=== PATIENT | female | born 1960 | race African-American/Black ===

== ENCOUNTER → 2016-02-19 | Outpatient (CLI) | payer MEDICARE, MEDICAID ==
[2016-02-19 09:36] LABS: CHOLESTEROL 192.79 mg/dL (0-200); Direct HDL 61 mg/dL (>40); TRIGLYCERIDES 157 mg/dL (<150)
[2016-02-19 09:47] LABS: DIRECT LDL 89 mg/dL (<100)
[2016-02-19 09:52] LABS: VLDL CHOLESTEROL 31.4 mg/dL (10-31)
== END ==
LOC: OD 07:57
PROVIDERS: ATTEND Internal Medicine
DX: E11.9 Type 2 diabetes mellitus without complications (principal); E78.5 Hyperlipidemia, unspecified
CPT/HCPCS: 36415; 80061; 83036

== ENCOUNTER → 2016-04-09 | Outpatient (CLI) | payer MEDICARE, MEDICAID | LOC: RAD 10:02 | PROVIDERS: ATTEND Specialist | DX: C56.1 Malignant neoplasm of right ovary (principal) | CPT/HCPCS: 74177 ==

== ENCOUNTER → 2016-05-17 | Outpatient (CLI) | payer MEDICARE, MEDICAID ==
[2016-05-17 09:33] LABS: URIC ACID 4.7 mg/dL (2.5-7.5)
[2016-05-18 13:38] LABS: CREATININE URINE 76.5 mg/dL (Not Estab.)
== END ==
LOC: OD 08:03
PROVIDERS: ATTEND Family Medicine Geriatric Medicine
DX: M25.561 Pain in right knee (principal); E11.9 Type 2 diabetes mellitus without complications; M06.9 Rheumatoid arthritis, unspecified; Z79.899 Other long term (current) drug therapy
CPT/HCPCS: 36415; 82043; 82570; 84443; 84450; 84460; 84550

== ENCOUNTER → 2016-07-01 | Outpatient (CLI) | payer MEDICARE, MEDICAID | LOC: RAD 10:12 | PROVIDERS: ATTEND Specialist | DX: C56.1 Malignant neoplasm of right ovary (principal) | CPT/HCPCS: 74177; 82565 ==

== ENCOUNTER → 2016-09-13 | Outpatient (CLI) | payer MEDICARE, MEDICAID ==
--- NOTE | 2016-09-13 10:08 | RADIOLOGY REPORT (SQ) ---
EXAM DESCRIPTION: CT ABD/PELVIS WITH IV ORAL COMPLETED DATE/TIME: 09/13/2016 8:30 am REASON FOR STUDY: OVARIAN CA (C56.1) C56.1 MALIGNANT NEOPLASM OF RIGHT OVARY COMPARISON: 07/01/2016. 04/09/2016. TECHNIQUE: CT scan of the abdomen and pelvis performed with intravenous and oral contrast using silva juan pablo scanning technique with dynamic intravenous contrast injection. Images reviewed with lung, soft t issue, and bone windows. Reconstructed coronal and sagittal MPR images reviewed. Delayed images for e valuation of the urinary system also acquired. All images stored on PACS. All CT scanners at this facility use dose modulation, iterative reconstruction, and/or weight based d osing when appropriate to reduce radiation dose to as low as reasonably achievable (ALARA). [facility]: Dose Right [facility]: CareDose [facility]: Dose Right [facility]: Teradose 4D [facility]: [employer] CONTRAST TYPE AND DOSE: contrast/concentration: Isovue mg/ml; Total Contrast Delivered: 84.0 ml; To mario alberto Saline Delivered: 34.3 ml RENAL FUNCTION: Creatinine 1.1 RADIATION DOSE: Up-to-date CT equipment and radiation dose reduction techniques were employed. CTDIv ol: 7.3 - 8.7 mGy. DLP: 838 mGy-cm.. LIMITATIONS: None. FINDINGS: LOWER CHEST: Slightly nodular appearing scar in the posterior left costophrenic angle. Th is is nonprogressive over time, measuring up to 1.8 cm transverse dimension. Otherwise, motion artif act. LIVER: Normal size. No masses. No dilated ducts. SPLEEN: Normal size. No focal lesions. PANCREAS: No masses. No significant calcifications. No adjacent inflammation or peripancreatic fluid collections. Pancreatic duct not dilated. GALLBLADDER: Large calcified gallstone. No wall thickening surrounding fluid or duct dilatation. ADRENAL GLANDS: No significant masses or asymmetry. RIGHT KIDNEY AND URETER: Nonobstructive calcifications may be vascular. No obstructive changes or ma ss. LEFT KIDNEY AND URETER: Left ureteral stent in place. No obstructive changes or developing mass. AORTA AND VESSELS: No aneurysm. No dissection. Renal arteries, SMA, celiac without stenosis. RETROPERITONEUM: No retroperitoneal adenopathy, hemorrhage or masses. BOWEL AND PERITONEAL CAVITY: No obstruction. No visualized masses. No free fluid. No inflammatory ch anges or thickening of bowel wall. APPENDIX: Normal. PELVIS: Surgical clips and calcifications. Bladder unremarkable. Small subcentimeter pelvic sidewal l lymph nodes are nonprogressive. Tissue along the left pelvic sidewall surrounding the stent is non progressive, measuring up to just over 1 cm transverse dimension. ABDOMINAL WALL: No masses. No hernias. BONES: No significant or acute findings. OTHER: No other significant finding. IMPRESSION: 1. Fairly stable examination. Left ureteral stent remains in place with no evidence of obstruction on today's study. Other unchanged findings include nodular appearing scar in the left l rafat base, cholelithiasis, small persistent pelvic lymph nodes which are not grossly progressive. TECHNICAL DOCUMENTATION: JOB ID: [id number] Quality ID # 436: Final reports with documentation of one or more dose reduction techniques (e.g., Au tomated exposure control, adjustment of the mA and/or kV according to patient size, use of iterative reconstruction technique) 2010 [employer]- All Rights Reserved
== END ==
LOC: RAD 07:35
PROVIDERS: ATTEND Internal Medicine
DX: C56.1 Malignant neoplasm of right ovary (principal)
CPT/HCPCS: 74177

== ENCOUNTER → 2016-09-14 | Outpatient (CLI) | payer MEDICARE, MEDICAID ==
[2016-09-14 11:35] LABS: ALANINE AMINOTRANSFERASE 26 U/L (9-52); ASPARTATE AMINO TRANSFERASE 21 U/L (14-36); CHOLESTEROL 273.38 mg/dL (0-200); Direct HDL 98 mg/dL (>40); TRIGLYCERIDES 93 mg/dL (<150)
[2016-09-14 11:47] LABS: DIRECT LDL 134 mg/dL (<100)
[2016-09-15 11:40] LABS: CREATININE URINE 126.6 mg/dL (Not Estab.); MICROALBUMIN URINE 115.3 ug/mL (Not Estab.)
== END ==
LOC: OD 07:20
PROVIDERS: ATTEND Family Medicine Geriatric Medicine
DX: E11.9 Type 2 diabetes mellitus without complications (principal); I10 Essential (primary) hypertension; E78.5 Hyperlipidemia, unspecified; Z79.899 Other long term (current) drug therapy
CPT/HCPCS: 36415; 80061; 82043; 82570; 83036; 84450; 84460

== ENCOUNTER → 2016-09-22 | Outpatient (CLI) | payer MEDICARE, MEDICAID ==
--- NOTE | 2016-09-22 11:50 | RADIOLOGY REPORT (SQ) ---
EXAM DESCRIPTION: CT HEAD WITHOUT COMPLETED DATE/TIME: 09/22/2016 11:40 am REASON FOR STUDY: SYNCOPE AND COLLAPSE, OVARIAN CA R55 SYNCOPE AND COLLAPSE C56.9 MALIGNANT NEOPLA SM OF UNSPECIFIED OVARY COMPARISON: CT brain 08/18/2015, 01/29/2014 TECHNIQUE: Axial images acquired through the brain without intravenous contrast. Images reviewed wi th bone, brain and subdural windows. Images stored on PACS. All CT scanners at this facility use dose modulation, iterative reconstruction, and/or weight based d osing when appropriate to reduce radiation dose to as low as reasonably achievable (ALARA). [facility]: Dose Right [facility]: CareDose [facility]: Dose Right [facility]: Teradose 4D [facility]: [employer] RADIATION DOSE: Up-to-date CT equipment and radiation dose reduction techniques were employed. CTDIv ol: 64.6 mGy. DLP: 1034 mGy-cm. mGy. LIMITATIONS: None. FINDINGS: VENTRICLES: Normal size and contour. CEREBRUM: Minimal spotty chronic bifrontal and biparietal small vessel ischemic change, stable. Old lacunar infarct left caudate and left posterior limb internal capsule. Benign bilateral basal gangli a calcifications. No CT evidence of acute ischemic change, acute intracranial hemorrhage, mass effect, or midline shift . CEREBELLUM: No masses. No hemorrhage. No alteration of density. No evidence for acute infarction. EXTRAAXIAL SPACES: No fluid collections. No masses. ORBITS AND GLOBE: No intra- or extraconal masses. Normal contour of globe without masses. CALVARIUM: No fracture. PARANASAL SINUSES: No fluid or mucosal thickening. SOFT TISSUES: No mass or hematoma. OTHER: No other significant finding. IMPRESSION: White matter disease, old lacunar infarcts. No acute findings. TECHNICAL DOCUMENTATION: JOB ID: [id number] Quality ID # 436: Final reports with documentation of one or more dose reduction techniques (e.g., Au tomated exposure control, adjustment of the mA and/or kV according to patient size, use of iterative reconstruction technique) 2010 [employer]- All Rights Reserved
== END ==
LOC: RAD 11:26
PROVIDERS: ATTEND Family Medicine Geriatric Medicine
DX: R55 Syncope and collapse (principal); C56.9 Malignant neoplasm of unspecified ovary
CPT/HCPCS: 70450

== ENCOUNTER → 2016-10-04 | Outpatient (CLI) | payer MEDICARE, MEDICAID ==
[2016-10-04 08:34] LABS: CHOLESTEROL 255.15 mg/dL (0-200); Direct HDL 109 mg/dL (>40); TRIGLYCERIDES 104 mg/dL (<150)
[2016-10-04 08:44] LABS: DIRECT LDL 103 mg/dL (<100)
== END ==
LOC: OD 07:12
PROVIDERS: ATTEND Family Medicine Geriatric Medicine
DX: E78.5 Hyperlipidemia, unspecified (principal); Z79.899 Other long term (current) drug therapy
CPT/HCPCS: 36415; 80061

== ENCOUNTER 2016-11-16 14:03 | Day surgery (SDC) | payer MEDICARE, MEDICAID ==
[2016-11-11 09:59] LABS: HEMATOCRIT 39.1 % (36.0-47.0); HEMOGLOBIN 12.8 g/dL (12.0-15.5); HGB HCT DIFFERENCE -0.7; MEAN CORPUSCULAR HEMOGLOBIN 29.5 pg (27.0-33.4); MEAN CORPUSCULAR HGB CONC 32.8 g/dL (32.0-36.0); MEAN CORPUSCULAR VOLUME 90 fl (80-97); RED BLOOD COUNT 4.35 10^6/uL (3.72-5.28); RED CELL DISTRIBUTION WIDTH 16.8 % (11.5-14.0); WHITE BLOOD COUNT 5.7 10^3/uL (4.0-10.5)
--- NOTE | 2016-11-11 12:08 | RADIOLOGY REPORT (SQ) ---
EXAM DESCRIPTION: CHEST PA/LATERAL COMPLETED DATE/TIME: 11/11/2016 11:59 am REASON FOR STUDY: PRE OP COMPARISON: None. EXAM PARAMETERS: NUMBER OF VIEWS: two views TECHNIQUE: Digital Frontal and Lateral radiographic views of the chest acquired. RADIATION DOSE: NA LIMITATIONS: none FINDINGS: LUNGS AND PLEURA: No opacities, masses or pneumothorax. No pleural effusion. MEDIASTINUM AND HILAR STRUCTURES: No masses or contour abnormalities. HEART AND VASCULAR STRUCTURES: Heart normal size. No evidence for failure. BONES: No acute findings. Thoracic scoliosis. HARDWARE: None in the chest. OTHER: No other significant finding. IMPRESSION: NO SIGNIFICANT RADIOGRAPHIC FINDING IN THE CHEST. TECHNICAL DOCUMENTATION: JOB ID: [id number] [employer]- All Rights Reserved
[2016-11-11 12:51] LABS: ANION GAP 10 (5-19); BLOOD UREA NITROGEN 26 mg/dL (7-20); CALCIUM 10.5 mg/dL (8.4-10.2); CARBON DIOXIDE 27 mmol/L (22-30); CHLORIDE 106 mmol/L (98-107); CREATININE RESULT 0.98 mg/dL (0.52-1.25); GLUCOSE 105 mg/dL (75-110); POTASSIUM 4.6 mmol/L (3.6-5.0); SODIUM 142.7 mmol/L (137-145)
[~2016-11-16 14:03] MED LIST: ACETAMINOPHEN 325 MG TABLET PO PRN; BUPIVACAINE HCL 0.25 % INJ/PF (2.5 MG/1 ML) 30 ML VIAL ONE; CEFAZOLIN 1 GM/D5W RTU 1 GM/50 ML RTUPB IV PRN; FENTANYL CITRATE INJ/PF 100 MCG/2 ML AMPUL ONE; LACTATED RINGERS 1000 ML IV PRN; LIDOCAINE 0.5% INJ-PF (5 MG/ML) 50 ML SDV SUBCUT PRN; MIDAZOLAM 2 MG/2 ML INJ ONE; PROPOFOL INJ 200 MG/20 ML VIAL IV ONE
[2016-11-16] MEDS ORDERED: FENTANYL CITRATE INJ/PF 100 MCG/2 ML AMPUL IV PRN ×3 (14:49)
[2016-11-16] MEDS ORDERED: OXYCODONE-ACETAMINOPHEN 5-325 MG TABLET PO PRN ×2 (14:49)
[2016-11-16] MEDS ORDERED: PROMETHAZINE HCL INJ 25 MG/1 ML VIAL IV PRN ×2 (14:49)
[2016-11-16] MEDS ORDERED: DIPHENHYDRAMINE HCL 50 MG/ML VIAL IV PRN (14:49)
[2016-11-16] MEDS ORDERED: MEPERIDINE HCL/PF INJ 25 MG/1 ML DISP.SYRIN IV PRN (14:49)
[2016-11-16] MEDS ORDERED: MORPHINE SULFATE 10 MG/ML INJ IV PRN (14:49)
--- NOTE | 2016-11-16 15:24 | Operative Report ---
Operative Report DATE OF SURGERY: 11/16/16 PREOPERATIVE DIAGNOSIS: Ovarian cancer POSTOPERATIVE DIAGNOSIS: Ovarian cancer OPERATION: Left subclavian single-lumen PowerPort placement (permanent implanted central venous access placed via fluoroscopic guidance) SURGEON: MAGGIE ANDRES ANESTHESIA: LMAC TISSUE REMOVED OR ALTERED: None COMPLICATIONS: None ESTIMATED BLOOD LOSS: Minimal INTRAOPERATIVE FINDINGS: None PROCEDURE: Patient was brought to the operating room placed operating table in the supine position. The procedure was done under LMAC. Patient's left neck and chest were prepped and draped in usual sterile fashion. Local anesthetic was injected. The left subclavian vein was cannulated without difficulty guidewire was placed into the central circulation under fluoroscopic guidance. A subcutaneous pocket was created in the patient's left anterior upper chest. Single-lumen catheter was then tunneled between the 2 incisions. The catheter was placed into the central circulation using the introducer device. Catheter was then attached to the power port which was then implanted into the subcutaneous pocket. The tip of the catheter was verified at the right atrial superior vena cava junction by fluoroscopy. The port withdrew blood and flushed easily. It was flushed with heparin solution. All wounds were closed with a deep dermal interrupted Vicryl sutures followed by subcuticular running Monocryl suture. Patient tolerated procedure well with no apparent complications and was taken to the recovery area in stable condition. Stat portable chest x-ray was ordered in the recovery room
--- NOTE | 2016-11-16 15:27 | PDOC DISCHARGE SUMMARY ---
Discharge Summary (SDC) - Discharge Final Diagnosis: Ovarian cancer Date of Surgery: 11/16/16 Discharge Date: 11/16/16 Condition: Good Treatment or Instructions: Left subclavian single-lumen PowerPort placement. Stat portable chest x-ray in the recovery room. May discharge patient home when met discharge criteria. Follow-up with me as needed. May shower in 2 days. Keep Steri-Strips on. May use PowerPort. May resume Plavix in 5 days if no swelling and no bleeding. Prescriptions: Oxycodone HCl/Acetaminophen [Percocet 5-325 mg Tablet] 1 tab PO ASDIR PRN #10 tablet PRN Reason: Referrals: MATTHEW MARION MD [Primary Care Provider] - Discharge Diet: As Tolerated Discharge Activity: Activity As Tolerated - Stay active but avoid strenuous activity. Report the Following to Your Physician Immediately: Shortness of Breath, Fever over 101 Degrees, Unusual Bleeding, Redness, Drainage-Foul Smelling
--- NOTE | 2016-11-16 16:13 | RADIOLOGY REPORT (SQ) ---
EXAM DESCRIPTION: CHEST SINGLE VIEW COMPLETED DATE/TIME: 11/16/2016 3:44 pm REASON FOR STUDY: Status post Port-A-Cath placement COMPARISON: AP chest 11/11/2016 EXAM PARAMETERS: NUMBER OF VIEWS: One view. TECHNIQUE: Single frontal radiographic view of the chest acquired. RADIATION DOSE: NA LIMITATIONS: None. FINDINGS: Interval placement of a left-sided permanent central line with the tip in the superior krissy a cava. No left pneumothorax. LUNGS AND PLEURA: No opacities, masses or pneumothorax. No pleural effusion. MEDIASTINUM AND HILAR STRUCTURES: No masses. Contour normal. HEART AND VASCULAR STRUCTURES: Heart normal in size. Normal vasculature. BONES: No acute findings. HARDWARE: As above OTHER: No other significant finding. IMPRESSION: Left-sided permanent central line tip superior vena cava. No pneumothorax. TECHNICAL DOCUMENTATION: JOB ID: [id number]
--- NOTE | 2016-11-16 17:00 | RADIOLOGY REPORT (SQ) ---
EXAM DESCRIPTION: FLUORO/CV PLACEMENT COMPLETED DATE/TIME: 11/16/2016 3:38 pm REASON FOR STUDY: PORTACATH PLACEMENT C56.1 MALIGNANT NEOPLASM OF RIGHT OVARY COMPARISON: Two-view chest 11/11/2016 FLUOROSCOPY TIME: 0.2 minutes 4 digital radiographic images saved to PACS. TECHNIQUE: Intra-operative images acquired during surgical procedure to evaluate progress. NUMBER OF IMAGES: Cine fluoroscopic images. LIMITATIONS: None. FINDINGS: Intra procedural imaging and fluoro during permanent central line placement in the OR. Pl ease see the operative report for further details IMPRESSION: Intra procedural imaging and fluoro COMMENT: Quality ID 145: Final reports for procedures using fluoroscopy that document radiation exp osure indices, or exposure time and number of fluorographic images (if radiation exposure indices are not available) Please consult full operative report of the attending physician for description of the procedure. TECHNICAL DOCUMENTATION: JOB ID: [id number] [employer]- All Rights Reserved
[2016-11-16 17:45] VITALS: BP 145/99
== END 2016-11-16 17:45 | disposition home or self-care (01) ==
LOC: OROUT 14:03
PROVIDERS: ATTEND Surgery
PROC: 05H633Z Insertion of Infusion Device into Left Subclavian Vein, Percutaneous Approach (ICD-10-PCS; principal; 2016-11-16 15:30)
DX: C56.1 Malignant neoplasm of right ovary (principal); Z86.73 Personal history of transient ischemic attack (TIA), and cerebral infarction without residual deficits; Z79.899 Other long term (current) drug therapy; E11.9 Type 2 diabetes mellitus without complications; Z79.84 Long term (current) use of oral hypoglycemic drugs; Z79.82 Long term (current) use of aspirin; Z79.02 Long term (current) use of antithrombotics/antiplatelets
CPT/HCPCS: 36415; 71010; 71020; 77001; 80048; 82962; 85027; C1788; J0690; J1642; J2250; J2704; J3010

== ENCOUNTER → 2017-02-28 | Outpatient (CLI) | payer MEDICARE, MEDICAID ==
--- NOTE | 2017-02-28 11:52 | RADIOLOGY REPORT (SQ) ---
EXAM DESCRIPTION: CT ABD/PELVIS WITH IV ORAL COMPLETED DATE/TIME: 02/28/2017 10:10 am REASON FOR STUDY: OVARIAN CA (C56.1) C56.1 MALIGNANT NEOPLASM OF RIGHT OVARY COMPARISON: 09/13/2016 TECHNIQUE: CT scan of the abdomen and pelvis performed with intravenous and oral contrast using silva juan pablo scanning technique with dynamic intravenous contrast injection. Images reviewed with lung, soft t issue, and bone windows. Reconstructed coronal and sagittal MPR images reviewed. Delayed images for e valuation of the urinary system also acquired. All images stored on PACS. All CT scanners at this facility use dose modulation, iterative reconstruction, and/or weight based d osing when appropriate to reduce radiation dose to as low as reasonably achievable (ALARA). [facility]: Dose Right [facility]: CareDose [facility]: Dose Right [facility]: Teradose 4D [facility]: [employer] CONTRAST TYPE AND DOSE: contrast/concentration: Isovue 370.00 mg/ml; Total Contrast Delivered: 86.0 ml; Total Saline Delivered: 69.0 ml RENAL FUNCTION: BUN 23 creatinine 1.1 RADIATION DOSE: CT Rad equipment meets quality standard of care and radiation dose reduction techniq ues were employed. CTDIvol: 9.6 - 11.2 mGy. DLP: 1089 mGy-cm. . LIMITATIONS: None. FINDINGS: LOWER CHEST: Stable scarring left lower lobe. LIVER: Normal size. No masses. No dilated ducts. SPLEEN: Normal size. No focal lesions. PANCREAS: No masses. No significant calcifications. No adjacent inflammation or peripancreatic fluid collections. Pancreatic duct not dilated. GALLBLADDER: Gallstones. No inflammatory changes to suggest cholecystitis. ADRENAL GLANDS: No significant masses or asymmetry. RIGHT KIDNEY AND URETER: No solid masses. No significant calcifications. No hydronephrosis or hyd roureter. LEFT KIDNEY AND URETER: No solid masses. No significant calcifications. Unchanged position of the ureteral stent. AORTA AND VESSELS: No aneurysm. No dissection. Renal arteries, SMA, celiac without stenosis. RETROPERITONEUM: No retroperitoneal adenopathy, hemorrhage or masses. BOWEL AND PERITONEAL CAVITY: No obstruction. No visualized masses. No free fluid. No inflammatory ch anges or thickening of bowel wall. APPENDIX: Normal. PELVIS: Unchanged subcentimeter pelvic nodes. ABDOMINAL WALL: No masses. No hernias. BONES: No acute findings. OTHER: No other significant finding. IMPRESSION: Stable exam. Left ureteral stent. Subcentimeter pelvic nodes. TECHNICAL DOCUMENTATION: JOB ID: [id number] Quality ID # 436: Final reports with documentation of one or more dose reduction techniques (e.g., Au tomated exposure control, adjustment of the mA and/or kV according to patient size, use of iterative reconstruction technique) 2010 [employer]- All Rights Reserved
== END ==
LOC: RAD 08:57
PROVIDERS: ATTEND Internal Medicine Hematology & Oncology
DX: C56.1 Malignant neoplasm of right ovary (principal)
CPT/HCPCS: 74177

== ENCOUNTER → 2017-03-22 | Outpatient (CLI) | payer MEDICARE ==
[2017-03-22 08:41] LABS: ALANINE AMINOTRANSFERASE 23 U/L (9-52); ASPARTATE AMINO TRANSFERASE 21 U/L (14-36); CHOLESTEROL 268.95 mg/dL (0-200); TRIGLYCERIDES 157 mg/dL (<150)
[2017-03-22 08:52] LABS: DIRECT LDL 114 mg/dL (<100)
[2017-03-22 09:03] LABS: VLDL CHOLESTEROL 31.4 mg/dL (10-31)
[2017-03-23 13:39] LABS: CREATININE URINE 127.1 mg/dL (Not Estab.)
[2017-03-23 14:39] LABS: MICROALBUMIN URINE 1933.1 ug/mL (Not Estab.)
== END ==
LOC: OD 07:30
PROVIDERS: ATTEND Family Medicine Geriatric Medicine
DX: E11.21 Type 2 diabetes mellitus with diabetic nephropathy (principal); I10 Essential (primary) hypertension; E78.5 Hyperlipidemia, unspecified; R55 Syncope and collapse; C56.9 Malignant neoplasm of unspecified ovary; Z79.899 Other long term (current) drug therapy; Z29.9 Encounter for prophylactic measures, unspecified
CPT/HCPCS: 36415; 80061; 82043; 82570; 84450; 84460

== ENCOUNTER → 2017-05-30 | Outpatient (CLI) | payer MEDICARE, MEDICAID ==
[2017-05-30 08:22] LABS: ALANINE AMINOTRANSFERASE 31 U/L (9-52); ANION GAP 10 (5-19); ASPARTATE AMINO TRANSFERASE 24 U/L (14-36); BLOOD UREA NITROGEN 22 mg/dL (7-20); CALCIUM 9.7 mg/dL (8.4-10.2); CARBON DIOXIDE 29 mmol/L (22-30); CHLORIDE 107 mmol/L (98-107); CHOLESTEROL 204.56 mg/dL (0-200); GLUCOSE 141 mg/dL (75-110); SODIUM 146.3 mmol/L (137-145); TRIGLYCERIDES 104 mg/dL (<150)
[2017-05-30 08:32] LABS: DIRECT LDL 79 mg/dL (<100)
[2017-05-30 08:35] LABS: POTASSIUM 4.4 mmol/L (3.6-5.0)
[2017-05-31 12:38] LABS: CREATININE URINE 102.9 mg/dL (Not Estab.)
[2017-05-31 13:54] LABS: MICROALBUMIN URINE 937.8 ug/mL (Not Estab.)
== END ==
LOC: OD 07:11
PROVIDERS: ATTEND Family Medicine Geriatric Medicine
DX: E11.21 Type 2 diabetes mellitus with diabetic nephropathy (principal); I10 Essential (primary) hypertension; E78.5 Hyperlipidemia, unspecified; Z79.899 Other long term (current) drug therapy
CPT/HCPCS: 36415; 80048; 80061; 82043; 82570; 83036; 84450; 84460

== ENCOUNTER → 2017-06-16 | Outpatient (CLI) | payer MEDICARE, MEDICAID ==
--- NOTE | 2017-06-16 09:53 | RADIOLOGY REPORT (SQ) ---
EXAM DESCRIPTION: CT ABD/PELVIS WITH IV ORAL COMPLETED DATE/TIME: 06/16/2017 9:17 am REASON FOR STUDY: OVARIAN CA (C56.1) C56.1 MALIGNANT NEOPLASM OF RIGHT OVARY COMPARISON: PET-CT 11/14/2015 CT abdomen pelvis 04/09/2016, 09/13/2016, 02/28/2017 TECHNIQUE: CT scan of the abdomen and pelvis performed using helical scanning technique with dynamic intravenous contrast injection. Patient drank oral contrast. Images reviewed with lung, soft tissue , and bone windows. Reconstructed coronal and sagittal MPR images reviewed. Delayed images for evalua tion of the urinary system also acquired. All images stored on PACS. All CT scanners at this facility use dose modulation, iterative reconstruction, and/or weight based d osing when appropriate to reduce radiation dose to as low as reasonably achievable (ALARA). [facility]: Dose Right [facility]: CareDose [facility]: Dose Right [facility]: Teradose 4D [facility]: [employer] CONTRAST TYPE AND DOSE: contrast/concentration: Isovue 370.00 mg/ml; Total Contrast Delivered: 89.0 ml; Total Saline Delivered: 70.0 ml RENAL FUNCTION: Creatinine 1.0 RADIATION DOSE: CT Rad equipment meets quality standard of care and radiation dose reduction techniq ues were employed. CTDIvol: 11.5 - 13.2 mGy. DLP: 1335 mGy-cm.. LIMITATIONS: None. FINDINGS: LOWER CHEST: Minimal scarring in the left posterior costophrenic sulcus stable compared to previous studies. LIVER: Normal size. No masses. No dilated ducts. SPLEEN: Normal size. No focal lesions. PANCREAS: No masses. No significant calcifications. No adjacent inflammation or peripancreatic fluid collections. Pancreatic duct not dilated. GALLBLADDER: Calcified stones in the gallbladder without inflammatory change. ADRENAL GLANDS: No significant masses or asymmetry. RIGHT KIDNEY AND URETER: No solid masses. No significant calcifications. No hydronephrosis or hyd roureter. LEFT KIDNEY AND URETER: No solid masses. No significant calcifications. No hydronephrosis or hydr oureter. Left-sided double-J stent in good positioning. Along the distal most aspect of the stent, axial image 72 a rind of soft tissue surrounds the distal left ureteral stent about 15 to 16 mm in gr eatest transverse diameter. This is similar compared to 02/28/2017 and AORTA AND VESSELS: No aneurysm. No dissection. Renal arteries, SMA, celiac without stenosis. RETROPERITONEUM: No retroperitoneal adenopathy, hemorrhage or masses. BOWEL AND PERITONEAL CAVITY: No CT evidence of bowel obstruction. No free intraperitoneal air or flu id. No masses or inflammatory changes. No peritoneal masses. APPENDIX: Normal. PELVIS: Post hysterectomy. Rind of soft tissue surrounding the distal left ureteral stent is stable compared to previous studies. Left perineal mass is present 4.5 x 2.6 cm in size, on axial image 93. This is slightly larger than on prior scan 02/28/2017 where it was very difficult to visualize at th at time and measured about 2.4 x 1.7 cm. There is a 1 x 0.6 cm left internal iliac node on axial mikel ge 70 (was 9 x 6 mm in size on 02/28/2017). ABDOMINAL WALL: No masses. No hernias. BONES: No significant or acute findings. OTHER: No other significant finding. IMPRESSION: Increase in size of left perineal mass and left external iliac lymph node compared to pr evious exam Stable soft tissue surrounding the distal left ureteral stent. No left hydronephrosis. TECHNICAL DOCUMENTATION: JOB ID: [id number] Quality ID # 436: Final reports with documentation of one or more dose reduction techniques (e.g., Au tomated exposure control, adjustment of the mA and/or kV according to patient size, use of iterative reconstruction technique) 2010 [employer]- All Rights Reserved Reading location - IP/workstation name: [email or web address]
== END ==
LOC: RAD 08:38
PROVIDERS: ATTEND Internal Medicine Hematology & Oncology
DX: C56.1 Malignant neoplasm of right ovary (principal)
CPT/HCPCS: 74177

== ENCOUNTER → 2017-06-21 | Outpatient (CLI) | payer MEDICARE, MEDICAID ==
--- NOTE | 2017-06-22 13:36 | RADIOLOGY REPORT (SQ) ---
EXAM DESCRIPTION: PET CT SKULL/THIGH COMPLETED DATE/TIME: 06/21/2017 6:34 pm REASON FOR STUDY: C56.1 MALIGNANT NEOPLASM OF RIGHT OVARY C56.1 MALIGNANT NEOPLASM OF RIGHT OVARY COMPARISON: 11/14/2015 RADIONUCLIDE AND DOSE: 11.28 mCi F18 FDG The route of agent administration: Intravenous FASTING BLOOD SUGAR: 117 mg/dl CONTRAST TYPE AND DOSE: No CT contrast given. TECHNIQUE: Blood glucose level was verified. Above dose of FDG was injected intravenously. 2-D seg mented attenuation correction images were obtained from the base of the skull to the midthighs. Nonc ontrast CT images were obtained for attenuation correction and fusion with emission images. CT image s were performed without oral or intravenous contrast and are not sensitive for parenchymal lesions. A series of overlapping emission PET images were obtained. Images reviewed and manipulated at [facility] by the radiologist. Images stored on PACS. LIMITATIONS: None. FINDINGS: HEAD AND NECK: No areas of abnormal metabolic activity in the soft tissues of the head and neck. CHEST: No areas of abnormal metabolic activity in the chest. ABDOMEN AND PELVIS: No areas of abnormal metabolic activity in the abdomen or pelvis. Expected physi ologic activity is present in the genitourinary system and bowel. PROXIMAL LOWER EXTREMITIES: No areas of abnormal metabolic activity in the soft tissues of the lower extremities. BONES: No abnormal metabolic activity in the visualized skeleton. ADDITIONAL CT FINDINGS: Chronic dilatation left renal collecting system. Left ureteral stent. Nevaeh lithiasis. Left-sided port with tip in the SVC. OTHER: No other significant findings. IMPRESSION: No evidence of local recurrence or metastatic disease. TECHNICAL DOCUMENTATION: JOB ID: [id number]- All Rights Reserved Reading location - IP/workstation name: [email or web address]
== END ==
LOC: RAD 16:40
PROVIDERS: ATTEND Internal Medicine Hematology & Oncology
DX: C56.1 Malignant neoplasm of right ovary (principal)
CPT/HCPCS: 78815; A9552

== ENCOUNTER → 2017-07-14 | Outpatient (CLI) | payer MEDICARE, MEDICAID ==
--- NOTE | 2017-07-14 13:45 | RADIOLOGY REPORT (SQ) ---
EXAM DESCRIPTION: KNEE RIGHT 2 VIEWS COMPLETED DATE/TIME: 07/14/2017 1:12 pm REASON FOR STUDY: RIGHT KNEE PAIN, UNSPECIFIED CHRONICITY (M25.561) COMPARISON: 06/17/2015, 09/07/2011 NUMBER OF VIEWS: Two views TECHNIQUE: AP and lateral radiographic images acquired of the right knee. LIMITATIONS: None. FINDINGS: MINERALIZATION: Normal. BONES: No acute fracture or malalignment. Normal bone density JOINT: Large suprapatellar knee joint effusion. Mild patellofemoral and lateral compartment joint sp dee narrowing and bony spurring SOFT TISSUES: Minimal femoral artery atherosclerotic arterial vascular calcification. OTHER: No other significant finding. IMPRESSION: Suprapatellar knee joint effusion without acute fracture. TECHNICAL DOCUMENTATION: JOB ID: [id number] [employer]- All Rights Reserved Reading location - IP/workstation name: [email or web address]
== END ==
LOC: RAD 12:47
PROVIDERS: ATTEND Family Medicine Geriatric Medicine
DX: M25.561 Pain in right knee (principal); M25.461 Effusion, right knee

== ENCOUNTER → 2017-09-09 | Outpatient (CLI) | payer MEDICARE, MEDICAID ==
--- NOTE | 2017-09-09 09:44 | WOMENS IMAGING REPORT ---
EXAM DESCRIPTION: RETROPERITONEAL U/S COMPLETED DATE/TIME: 09/09/2017 9:18 am REASON FOR STUDY: U/S RENAL/N18.2 N18.2 CHRONIC KIDNEY DISEASE, STAGE 2 (MILD) R80.9 PROTEINURIA, UNSPECIFIED COMPARISON: None. TECHNIQUE: Dynamic and static grayscale images acquired of the kidneys and bladder and recorded on P ACS. Additional selected color Doppler and spectral images recorded. LIMITATIONS: None. FINDINGS: RIGHT KIDNEY: Normal size. Normal echogenicity. No solid or suspicious masses. No h ydronephrosis. No calcifications. LEFT KIDNEY: Normal size. Normal echogenicity. No solid or suspicious masses. No hydronephrosi s. No calcifications. Stent. BLADDER: No masses. OTHER FINDINGS: No other significant finding. IMPRESSION: No hydronephrosis. TECHNICAL DOCUMENTATION: JOB ID: [id number] [employer]- All Rights Reserved Reading location - IP/workstation name: [email or web address]
== END ==
LOC: WI 08:35
PROVIDERS: ATTEND Internal Medicine Nephrology
DX: E11.22 Type 2 diabetes mellitus with diabetic chronic kidney disease (principal); I12.9 Hypertensive chronic kidney disease with stage 1 through stage 4 chronic kidney disease, or unspecified chronic kidney disease; N18.2 Chronic kidney disease, stage 2 (mild); R80.9 Proteinuria, unspecified
CPT/HCPCS: 76770

== ENCOUNTER → 2017-09-22 | Outpatient (CLI) | payer MEDICARE, MEDICAID ==
[2017-09-22 09:55] LABS: ABSOLUTE EOSINOPHILS # (AUTO) 0.1 10^3/uL (0.0-0.6); ABSOLUTE LYMPHOCYTES (AUTO) 2.2 10^3/uL (0.5-4.7); ABSOLUTE MONOCYTES (AUTO) 0.7 10^3/uL (0.1-1.4); ABSOLUTE NEUT (AUTO) 2.6 10^3/uL (1.7-8.2); BASOPHILS % (AUTO) 0.2 % (0-2); EOSINOPHILS % (AUTO) 2.1 % (0-6); HEMATOCRIT 33.8 % (36.0-47.0); HEMOGLOBIN 10.9 g/dL (12.0-15.5); LYMPHOCYTES % (AUTO) 39.2 % (13-45); MEAN CORPUSCULAR HEMOGLOBIN 28.2 pg (27.0-33.4); MEAN CORPUSCULAR HGB CONC 32.1 g/dL (32.0-36.0); MEAN CORPUSCULAR VOLUME 88 fl (80-97); MONOCYTES % (AUTO) 12.2 % (3-13); PLATELET COUNT 140 10^3/uL (150-450); RED BLOOD COUNT 3.85 10^6/uL (3.72-5.28); RED CELL DISTRIBUTION WIDTH 20.7 % (11.5-14.0); SEGMENTED NEUTROPHILS % (AUTO) 46.3 % (42-78); TOTAL CELLS COUNTED % (AUTO) 100 %; WHITE BLOOD COUNT 5.6 10^3/uL (4.0-10.5)
[2017-09-22 10:15] LABS: ALANINE AMINOTRANSFERASE 39 U/L (9-52); ALKALINE PHOSPHATASE 39 U/L (38-126); ANION GAP 10 (5-19); ASPARTATE AMINO TRANSFERASE 35 U/L (14-36); BILIRUBIN,DIRECT 0.3 mg/dL (0.0-0.4); BILIRUBIN,TOTAL 0.4 mg/dL (0.2-1.3); BLOOD UREA NITROGEN 28 mg/dL (7-20); CALCIUM 9.3 mg/dL (8.4-10.2); CARBON DIOXIDE 29 mmol/L (22-30); CHLORIDE 106 mmol/L (98-107); GLUCOSE 180 mg/dL (75-110); POTASSIUM 4.5 mmol/L (3.6-5.0); SODIUM 145.3 mmol/L (137-145); TOTAL PROTEIN 6.7 g/dL (6.3-8.2)
[2017-09-22 10:17] LABS: APPEARANCE,URINE CLOUDY; BILIRUBIN,URINE NEGATIVE (NEGATIVE); GLUCOSE, URINE NEGATIVE (NEGATIVE); KETONES,URINE NEGATIVE (NEGATIVE); LEUKOCYTE ESTERASE,URINE LARGE (NEGATIVE); NITRITE,URINE NEGATIVE (NEGATIVE); PROTEIN,URINE 100 mg/dL (NEGATIVE); URINE SPECIFIC GRAVITY 1.021
[2017-09-22 10:19] LABS: COLOR,URINE YELLOW
== END ==
LOC: OD 09:08
PROVIDERS: ATTEND Internal Medicine Nephrology
DX: I12.9 Hypertensive chronic kidney disease with stage 1 through stage 4 chronic kidney disease, or unspecified chronic kidney disease (principal); E11.22 Type 2 diabetes mellitus with diabetic chronic kidney disease; N18.2 Chronic kidney disease, stage 2 (mild); R80.9 Proteinuria, unspecified; N39.0 Urinary tract infection, site not specified
CPT/HCPCS: 36415; 80053; 81001; 83735; 85025; 87086; 87088; 87186

== ENCOUNTER 2017-11-25 10:21 | Observation (INO) | payer MEDICARE, MEDICAID ==
[2017-11-25] MEDS ORDERED: NORMAL SALINE 1000 ML 1,000 ML IV ONE (10:31)
[2017-11-25] MEDS ORDERED: ONDANSETRON HCL INJ/PF 4 MG/2 ML SDV IV ONE (10:54)
--- NOTE | 2017-11-25 10:59 | ER Document Report ---
ED GI/ - General Chief Complaint: Vomiting Stated Complaint: ABDOMINAL PAIN, VOMITING Time Seen by Provider: 11/25/17 10:37 Notes: Patient is a 57-year-old female with a history of ovarian cancer diagnosed in 2013, stage III, of the right ovary. Patient is followed by Dr. Pennington, who is her oncologist. Patient states 1 week ago she started a new chemotherapy p.o. medication, Naratarib. He states since starting this medication she has experienced nausea, vomiting, hiccups, decreased appetite, with 2 days of some periumbilical nonradiating abdominal discomfort. She denies any dysuria or diarrhea. She denies any fevers. She was sent here from the oncologist office secondary to a heart rate of 166 with a blood pressure of 74/56. Heart rate here is currently 105 with a blood pressure of 161/116. TRAVEL OUTSIDE OF THE [place] IN LAST 30 DAYS: No - HPI Patient complains to provider of: Other - See above Onset: Other - See above Timing/Duration: Gradual Quality of pain: Achy Severity at maximum: Mild Severity in ED: Mild Pain Level: 1 - See above Location: Other Vaginal bleeding (Compared to normal period): None Sexual history: Inactive Associated symptoms: Other - See above Exacerbated by: Denies Relieved by: Denies Similar symptoms previously: No Recently seen / treated by doctor: No - Related Data Allergies/Adverse Reactions: No Known Allergies Allergy (Verified 11/25/17 10:21) Past Medical History - Social History Smoking Status: Unknown if Ever Smoked Chew tobacco use (# tins/day): No Family History: CVA, DM, Hypertension - Past Medical History Cardiac Medical History: Reports: Hx Hypertension Denies: Hx Coronary Artery Disease, Hx Heart Attack Pulmonary Medical History: Denies: Hx Asthma, Hx Bronchitis, Hx COPD, Hx Pneumonia Neurological Medical History: Reports: Hx Cerebrovascular Accident - 01/2016 NO DEFICITS . Denies: Hx Seizures Musculoskeletal Medical History: Reports Hx Arthritis - RIGHT KNEE Past Surgical History: Reports: Hx Section, Hx Gynecologic Surgery - c- section - Immunizations Hx Diphtheria, Pertussis, Tetanus Vaccination: Yes Review of Systems - Review of Systems Constitutional: denies: Fever Cardiovascular: denies: Chest pain, Palpitations Respiratory: denies: Short of breath Gastrointestinal: Vomiting Genitourinary: denies: Dysuria Musculoskeletal: denies: Leg swelling Skin: Other - no hives. denies: Rash Neurological/Psychological: Other - no slurred speech -: Yes All other systems reviewed and negative Physical Exam - Vital signs Vitals: Temp Pulse Resp BP Pulse Ox 98.1 F 128 H 20 151/116 H 100 11/25/17 10:25 11/25/17 10:25 11/25/17 10:25 11/25/17 10:25 11/25/17 10:25 Notes: Reviewed vital signs and nursing note as charted by RN. CONSTITUTIONAL: Alert and oriented and responds appropriately to questions. Well -appearing; well-nourished HEAD: Normocephalic; atraumatic EYES: Sclerae non-icteric ENT: Normal nose; no rhinorrhea; moist mucous membranes NECK: Supple without meningismus; non-tender; no cervical lymphadenopathy, no masses CARD: Regular rate and rhythm; no murmurs; symmetric distal pulses RESP: Normal chest excursion without splinting or tachypnea; breath sounds clear and equal bilaterally ABD/GI: Normal bowel sounds; non-distended; soft, currently nontender to deep palpation of all 4 quadrants of the abdomen with no abdominal bruits or palpable masses BACK: The back appears normal and is non-tender to palpation, there is no CVA tenderness EXT: Normal ROM in all joints; non-tender to palpation; no cyanosis, no effusions, no edema SKIN: Normal color for age and race; warm; dry; good turgor; capillary refill < 2 seconds; no acute lesions noted NEURO: Moves all extremities equally; Motor and sensory function intact PSYCH: The patient's mood and manner are appropriate. Grooming and personal hygiene are appropriate. Course - Re-evaluation Re-evalutation: 11/25/17 10:58 Given the above history and physical examination, we will obtain basic labs, urine analysis, CT scan of the abdomen and pelvis, provide fluids. I would like to evaluate for possible obstruction or diffuse ovarian metastases. Patient's heart rate and blood pressure as recorded. Fluids and nausea medications have been provided. 11/25/17 11:20 EKG shows a heart rate of 83, normal sinus rhythm, normal axis, no obvious ST elevation or depression. PAC present 11/25/17 12:50 Heart rate has improved. Labs as recorded showing a slight acute renal failure , hyperglycemia, what appears to be very obvious and significant urinary tract infection. White blood cell count is on the upper limit of normal. I will call the hospitalist for admission. I have ordered a urine culture and have sent a lactic acid as well as provided a gram of Rocephin. - Vital Signs Vital signs: Temp Pulse Resp BP Pulse Ox 98.1 F 128 H 24 H 153/129 H 98 11/25/17 10:25 11/25/17 10:25 11/25/17 12:01 11/25/17 12:01 11/25/17 12:01 - Laboratory Result Diagrams: 11/25/17 10:45 11/25/17 10:45 Laboratory results interpreted by me: 11/25/17 11/25/17 11/25/17 10:45 10:45 11:12 RDW 19.5 H Plt Count 146 L Sodium 134.4 L Chloride 95 L BUN 38 H Creatinine 1.43 H Est GFR ( Amer) 46 L Est GFR (Non-Af Amer) 38 L Glucose 276 H Urine Protein >=500 H Urine Glucose (UA) 50 H Urine Ketones TRACE H Urine Blood SMALL H Ur Leukocyte Esterase LARGE H Discharge - Discharge Clinical Impression: Nausea, Hyperglycemia UTI (urinary tract infection) Qualifiers: Urinary tract infection type: site unspecified Hematuria presence: without hematuria Qualified Code(s): N39.0 - Urinary tract infection, site not specified Acute renal failure Qualifiers: Acute renal failure type: unspecified Qualified Code(s): N17.9 - Acute kidney failure, unspecified Condition: Fair Disposition: ADMITTED OBSERVATION Admitting Provider: Hospitalist Unit Admitted: Telemetry Referrals: DOUG PENNINGTON MD [ACTIVE STAFF] - Follow up as needed
[2017-11-25 11:16] LABS: ABSOLUTE BASOPHILS # (AUTO) 0.1 10^3/uL (0.0-0.2); ABSOLUTE LYMPHOCYTES (AUTO) 2.3 10^3/uL (0.5-4.7); ABSOLUTE MONOCYTES (AUTO) 0.7 10^3/uL (0.1-1.4); BASOPHILS % (AUTO) 0.7 % (0-2); EOSINOPHILS % (AUTO) 0.4 % (0-6); HEMATOCRIT 44.7 % (36.0-47.0); HEMOGLOBIN 14.9 g/dL (12.0-15.5); LYMPHOCYTES % (AUTO) 22.8 % (13-45); MEAN CORPUSCULAR HEMOGLOBIN 29.6 pg (27.0-33.4); MEAN CORPUSCULAR HGB CONC 33.3 g/dL (32.0-36.0); MEAN CORPUSCULAR VOLUME 89 fl (80-97); MONOCYTES % (AUTO) 6.9 % (3-13); PLATELET COUNT 146 10^3/uL (150-450); RED BLOOD COUNT 5.03 10^6/uL (3.72-5.28); RED CELL DISTRIBUTION WIDTH 19.5 % (11.5-14.0); SEGMENTED NEUTROPHILS % (AUTO) 69.2 % (42-78); TOTAL CELLS COUNTED % (AUTO) 100 %; WHITE BLOOD COUNT 10.2 10^3/uL (4.0-10.5)
[2017-11-25 11:46] LABS: ALANINE AMINOTRANSFERASE 33 U/L (9-52); ALBUMIN 4.7 g/dL (3.5-5.0); ALKALINE PHOSPHATASE 55 U/L (38-126); ANION GAP 16 (5-19); ASPARTATE AMINO TRANSFERASE 25 U/L (14-36); BILIRUBIN,DIRECT 0.2 mg/dL (0.0-0.4); BILIRUBIN,TOTAL 0.8 mg/dL (0.2-1.3); BLOOD UREA NITROGEN 38 mg/dL (7-20); CALCIUM 9.9 mg/dL (8.4-10.2); CARBON DIOXIDE 23 mmol/L (22-30); CHLORIDE 95 mmol/L (98-107); GLUCOSE 276 mg/dL (75-110); LIPASE 291.9 U/L (23-300); POTASSIUM 4.3 mmol/L (3.6-5.0); SODIUM 134.4 mmol/L (137-145); TOTAL PROTEIN 7.7 g/dL (6.3-8.2)
[2017-11-25 11:53] LABS: APPEARANCE,URINE CLOUDY; BILIRUBIN,URINE NEGATIVE (NEGATIVE); COLOR,URINE AMBER; GLUCOSE, URINE 50 mg/dL (NEGATIVE); KETONES,URINE TRACE mg/dL (NEGATIVE); LEUKOCYTE ESTERASE,URINE LARGE (NEGATIVE); NITRITE,URINE NEGATIVE (NEGATIVE); PROTEIN,URINE >=500 mg/dL (NEGATIVE); URINE SPECIFIC GRAVITY 1.025; UROBILINOGEN,URINE NEGATIVE mg/dL (<2.0)
[2017-11-25] MEDS ORDERED: CEFTRIAXONE RTU 1 GM/D5W 50 ML IV ONE (12:49)
--- NOTE | 2017-11-25 13:02 | RADIOLOGY REPORT (SQ) ---
EXAM DESCRIPTION: CT ABD/PELVIS WITH IV ONLY COMPLETED DATE/TIME: 11/25/2017 12:32 pm REASON FOR STUDY: 4, ovarian cancer, new chemotherapy drug, st III COMPARISON: 11/02/2017 06/16/2017 TECHNIQUE: CT scan of the abdomen and pelvis performed using helical scanning technique with dynamic intravenous contrast injection. No oral contrast. Images reviewed with lung, soft tissue, and bone windows. Reconstructed coronal and sagittal MPR images reviewed. Delayed images for evaluation of the urinary system also acquired. All images stored on PACS. All CT scanners at this facility use dose modulation, iterative reconstruction, and/or weight based d osing when appropriate to reduce radiation dose to as low as reasonably achievable (ALARA). [facility]: Dose Right [facility]: CareDose [facility]: Dose Right [facility]: Teradose 4D [facility]: readfy CONTRAST TYPE AND DOSE: contrast/concentration: Isovue 350.00 mg/ml; Total Contrast Delivered: 82.0 ml; Total Saline Delivered: 68.0 ml RENAL FUNCTION: BUN 38 creatinine 1.4 RADIATION DOSE: CT Rad equipment meets quality standard of care and radiation dose reduction techniq ues were employed. CTDIvol: 13.6 - 17.3 mGy. DLP: 1679 mGy-cm.. LIMITATIONS: None. FINDINGS: LOWER CHEST: Pleural/parenchymal scarring in the left base. LIVER: Normal size. No masses. No dilated ducts. SPLEEN: Normal size. No focal lesions. PANCREAS: No masses. No significant calcifications. No adjacent inflammation or peripancreatic fluid collections. Pancreatic duct not dilated. GALLBLADDER: A 15 mm gallstone is seen on image 27. Immediately adjacent is larger rim-like calcific ation. Is not certain whether this represents a large gallstone or calcification in the wall of the gallbladder. ADRENAL GLANDS: No significant masses or asymmetry. RIGHT KIDNEY AND URETER: No solid masses. No significant calcifications. No hydronephrosis or hyd roureter. LEFT KIDNEY AND URETER: No solid masses. No significant calcifications. No hydronephrosis. There is a stent that extends from the proximal left ureter to the bladder. AORTA AND VESSELS: No aneurysm. No dissection. Renal arteries, SMA, celiac without stenosis. RETROPERITONEUM: No retroperitoneal adenopathy, hemorrhage or masses. BOWEL AND PERITONEAL CAVITY: No masses or inflammatory changes. No free fluid or peritoneal masses. APPENDIX: Normal. PELVIS: No mass. No free fluid. Normal bladder. ABDOMINAL WALL: No hernias. A stable lymph node is seen on the left on image 88. BONES: No significant or acute findings. OTHER: No other significant finding. IMPRESSION: 1. Cholelithiasis. Cannot rule out calcification in the gallbladder wall. 2. Left ureteral stent as described. 3. No acute findings in the abdomen or pelvis. 4. Stable inguinal lymph node on the left. TECHNICAL DOCUMENTATION: JOB ID: [id number] Quality ID # [id number]: Final reports with documentation of one or more dose reduction techniques (e.g., Au tomated exposure control, adjustment of the mA and/or kV according to patient size, use of iterative reconstruction technique) 2010 [employer]- All Rights Reserved Reading location - IP/workstation name: [email or web address]
[2017-11-25] MEDS ORDERED: ONDANSETRON HCL INJ/PF 4 MG/2 ML SDV IV PRN ×2 (13:59→15:30)
[2017-11-25] MEDS ORDERED: ACETAMINOPHEN 325 MG TABLET PO PRN (13:59)
[2017-11-25] MEDS ORDERED: MAG HYDROX/AL HYDROX/SIMETH SUSP 30 ML UDCUP PO PRN (14:01)
[2017-11-25] MEDS ORDERED: ALBUTEROL SULFATE 0.083% NEB 2.5 MG/3 ML AMPUL NEB PRN (14:01)
[2017-11-25] MEDS ORDERED: PROMETHAZINE HCL INJ 25 MG/1 ML VIAL IV PRN ×2 (14:01→15:30)
[2017-11-25] MEDS ORDERED: DEXTROSE 50%-WATER 25 GM/50 ML DISP.SYRIN IV PRN ×2 (14:07)
[2017-11-25] MEDS ORDERED: DEXTROSE 40% GEL 15 GM TUBE PO PRN ×2 (14:07)
[2017-11-25] MEDS ORDERED: GLUCAGON,HUMAN RECOMB 1 MG INJ IM PRN (14:07)
[2017-11-25] MEDS ORDERED: MORPHINE SULFATE IR 15 MG TABLET PO PRN (14:46)
--- NOTE | 2017-11-25 14:48 | PDOC H&P ---
History of Present Illness Admission Date/PCP: 11/25/17 13:14 MATTHEW MARION MD Patient complains of: Nausea, vomiting History of Present Illness: ANGELA DALE is a 57 year old female with a past medical history of hypertension, PAF (chronically anticoagulated on Eliquis), CVA, hyperlipidemia, DM 2, and stage III ovarian cancer managed by Dr. Pennington who was sent to the emergency department from her office after presenting with a complaint of N/V with fever and chills x 1 week that began after starting a new oral chemotherapy medication. Reportedly, the patient had a heart rate of 166 and blood pressure of 74/56 at their office. The patient does confirm that she has been unable to tolerate her home medications for several days due to nausea and vomiting; likely the above vital signs were in episode of PAF. Evaluation in the emergency department reveals sinus tach (heart rate 117; improved to 89 following 1 L NS bolus), BP 156/100, and unremarkable CBC, chemistry revealing AK I with creatinine of 1.43 and BUN of 38, and urinalysis grossly positive for UTI. A CT of the abdomen demonstrated cholelithiasis, left ureteral stent, stable inguinal left lymph node, in no acute findings. She was referred to the hospitalist service for observational admission and management of urinary tract infection and DENISE secondary to dehydration. Past Medical History Cardiac Medical History: Reports: Atrial Fibrillation, Hyperlipidema, Hypertension Denies: Coronary Artery Disease, Myocardial Infarction Pulmonary Medical History: Denies: Asthma, Bronchitis, Chronic Obstructive Pulmonary Disease (COPD), Pneumonia EENT Medical History: Reports: None Neurological Medical History: Reports: Ischemic CVA Denies: Seizures Endocrine Medical History: Reports: Diabetes Mellitus Type 2 Denies: Hypothyroidism Malignancy Medical History: Reports: Ovarian Cancer GI Medical History: Reports: None Musculoskeltal Medical History: Reports: Arthritis - RIGHT KNEE Skin Medical History: Reports: None Psychiatric Medical History: Reports: Depression Hematology: Reports: Anemia Infectious Medical History: Reports: None Past Surgical History Past Surgical History: Reports: Section, Hysterectomy, Other - Left ureter stent Social History Information Source: Patient Lives with: Family Smoking Status: Never Smoker Frequency of Alcohol Use: Rare Hx Recreational Drug Use: Yes Drugs: Marijuana - Occasional Hx Prescription Drug Abuse: No - Advance Directive Resuscitation Status: Full Code Surrogate healthcare decision maker:: The patient's , Orlin Dale. Family History Family History: CVA, DM, Hypertension Parental Family History Reviewed: Yes Children Family History Reviewed: Yes Sibling(s) Family History Reviewed.: Yes Medication/Allergy Allergies/Adverse Reactions: No Known Allergies Allergy (Verified 11/25/17 10:21) Review of Systems Constitutional: PRESENT: anorexia, chills, fatigue, fever(s). ABSENT: headache( s), weight gain, weight loss Eyes: ABSENT: visual disturbances Ears: ABSENT: hearing changes Cardiovascular: ABSENT: chest pain, dyspnea on exertion, edema, orthropnea, palpitations Respiratory: ABSENT: cough, hemoptysis Gastrointestinal: PRESENT: abdominal pain - Suprapubic, nausea, vomiting. ABSENT: constipation, diarrhea, hematemesis, hematochezia Genitourinary: ABSENT: dysuria, hematuria Musculoskeletal: ABSENT: joint swelling Integumentary: ABSENT: rash, wounds Neurological: ABSENT: abnormal gait, abnormal speech, confusion, dizziness, focal weakness, syncope Psychiatric: ABSENT: anxiety, depression, homidical ideation, suicidal ideation Endocrine: ABSENT: cold intolerance, heat intolerance, polydipsia, polyuria Hematologic/Lymphatic: ABSENT: easy bleeding, easy bruising Physical Exam Vital Signs: Temp Pulse Resp BP Pulse Ox 98.1 F 128 H 24 H 153/129 H 98 11/25/17 10:25 11/25/17 10:25 11/25/17 12:01 11/25/17 12:01 11/25/17 12:01 General appearance: PRESENT: no acute distress, cooperative, well-developed, well-nourished Head exam: PRESENT: atraumatic, normocephalic Eye exam: PRESENT: conjunctiva pink, EOMI, PERRLA. ABSENT: scleral icterus Ear exam: PRESENT: normal external ear exam Mouth exam: PRESENT: moist, tongue midline Neck exam: ABSENT: carotid bruit, JVD, lymphadenopathy, thyromegaly Respiratory exam: PRESENT: clear to auscultation lawrence, symmetrical, unlabored. ABSENT: rales, rhonchi, wheezes Cardiovascular exam: PRESENT: RRR, +S1, +S2. ABSENT: diastolic murmur, rubs, systolic murmur Pulses: PRESENT: normal dorsalis pedis pul Vascular exam: PRESENT: normal capillary refill GI/Abdominal exam: PRESENT: normal bowel sounds, soft, tenderness - Suprapubic. ABSENT: distended, guarding, mass, organolmegaly, rebound Rectal exam: PRESENT: deferred Extremities exam: PRESENT: full ROM. ABSENT: calf tenderness, clubbing, pedal edema Neurological exam: PRESENT: alert, awake, oriented to person, oriented to place , oriented to time, oriented to situation, CN II-XII grossly intact. ABSENT: motor sensory deficit Psychiatric exam: PRESENT: appropriate affect, normal mood. ABSENT: homicidal ideation, suicidal ideation Skin exam: PRESENT: dry, intact, warm. ABSENT: cyanosis, rash Results Impressions: Abdomen/Pelvis CT 11/25/17 10:55 IMPRESSION: 1. Cholelithiasis. Cannot rule out calcification in the gallbladder wall. 2. Left ureteral stent as described. 3. No acute findings in the abdomen or pelvis. 4. Stable inguinal lymph node on the left. Assessment & Plan - Diagnosis (1) Acute renal failure Qualifiers: Acute renal failure type: unspecified Qualified Code(s): N17.9 - Acute kidney failure, unspecified Is this a current diagnosis for this admission?: Yes Plan: Prerenal acute kidney failure secondary to dehydration; the patient endorses 1 week of nausea and vomiting with poor p.o. intake. Creatinine found to be elevated to 1.43 with a baseline of 1.10. BUN is elevated to 38. The patient is admitted to the medical floor on continuous cardiac telemetry. She received a 1 L NS bolus by the emergency department provider. Will continue IV fluids. Encourage p.o. fluids. Avoid nephrotoxic medications as able. Daily chemistries. (2) UTI (urinary tract infection) Qualifiers: Urinary tract infection type: site unspecified Hematuria presence: with hematuria Qualified Code(s): N39.0 - Urinary tract infection, site not specified; R31.9 - Hematuria, unspecified; R31.9 - Hematuria, unspecified Is this a current diagnosis for this admission?: Yes Plan: The patient endorses suprapubic abdominal pain. She does report 1 week of malaise, fever and chills, and nausea and vomiting. She denies urinary urgency , frequency, dysuria. Urinalysis is positive for urinary tract infection. Blood and urine cultures are pending. She has empirically received IV Rocephin by the emergency department provider; will continue Rocephin with plan to transition to p.o. antibiotics when she has been afebrile times 48 hours. Continue IV fluids. Tylenol as needed for fever or discomfort. (3) HTN (hypertension) Is this a current diagnosis for this admission?: Yes Plan: The patient is on multiple antihypertensive medications at home; has not been able to tolerate her p.o. medications for several days now due to nausea and vomiting. We will manage nausea and vomiting with IV antiemetics and resume home medications once reconciled. IV hydralazine as needed for blood pressure control. (4) Nausea & vomiting Qualifiers: Vomiting type: unspecified Is this a current diagnosis for this admission?: Yes Plan: Multifactorial secondary to new p.o. chemotherapy agent in addition to UTI. IVF fluids. As needed zofran and phenergan. Pepcid twice daily. Advance diet as tolerated. (6) Diabetes Qualifiers: Diabetes mellitus type: type 2 Diabetes mellitus senior living insulin use: without senior living use Diabetes mellitus complication status: with hyperglycemia Qualified Code(s): E11.65 - Type 2 diabetes mellitus with hyperglycemia Is this a current diagnosis for this admission?: Yes Plan: The patient endorses a history of DM 2 managed with oral medications. We will hold oral anti-glycemic's while inpatient secondary to DENISE. She is placed on a consistent carb diet. Accu-Cheks before meals and at bedtime with Humalog for sliding scale coverage. (7) Ovarian cancer Qualifiers: Laterality: right Qualified Code(s): C56.1 - Malignant neoplasm of right ovary; C56.0 - Malignant neoplasm of right ovary Is this a current diagnosis for this admission?: Yes Plan: Patient has had poor tolerance of new p.o. chemotherapy medication. She is established with Dr. Pennington; will place consult for continuity of care. - Time Time Spent: 50 to 70 Minutes Medications reviewed and adjusted accordingly: Yes Anticipated discharge: Home Within: within 24 hours
[2017-11-25] MEDS ORDERED: (PENDING PHARMACY ID) (Diltiazem Hcl [Diltiazem Er] 120 MG) PO SCH (15:00)
[2017-11-25] MEDS: NORMAL SALINE 1000 ML 1,000 ML IV PRN ×2 (16:03→23:02)
[2017-11-25] MEDS: HYDRALAZINE HCL INJ/PF 20 MG/1 ML SDV IV PRN (16:10)
[2017-11-25] MEDS: DILTIAZEM HCL 120 MG CAP.SR.24H PO SCH (16:24)
[2017-11-25] MEDS ORDERED: HEPARIN SOD (PORCINE) 5,000 UNIT/ML 1 ML SYRINGE SUBCUT SCH (22:00)
--- NOTE | 2017-11-25 22:41 | EKG REPORT ---
SEVERITY:- OTHERWISE NORMAL ECG - SINUS RHYTHM ATRIAL PREMATURE COMPLEX : Confirmed by: Reina Abdalla MD 25-Nov-2017 22:40:40
[2017-11-25] MEDS: FAMOTIDINE INJ/PF 20 MG/2 ML SDV IV SCH (22:47)
[2017-11-25] MEDS: APIXABAN 5 MG TABLET PO SCH (22:47)
[2017-11-25] MEDS: INSULIN LISPRO 100 UNIT/ML 3 ML VIAL SUBCUT PRN (22:47)
[2017-11-26] MEDS: HYDRALAZINE HCL INJ/PF 20 MG/1 ML SDV IV PRN ×2 (03:55→13:32)
[2017-11-26] MEDS: NORMAL SALINE 1000 ML 1,000 ML IV PRN (05:39)
[2017-11-26 06:10] LABS: ABSOLUTE BASOPHILS # (AUTO) 0.1 10^3/uL (0.0-0.2); ABSOLUTE EOSINOPHILS # (AUTO) 0.1 10^3/uL (0.0-0.6); ABSOLUTE LYMPHOCYTES (AUTO) 1.6 10^3/uL (0.5-4.7); ABSOLUTE MONOCYTES (AUTO) 0.6 10^3/uL (0.1-1.4); BASOPHILS % (AUTO) 1.1 % (0-2); EOSINOPHILS % (AUTO) 1.9 % (0-6); HEMATOCRIT 38.2 % (36.0-47.0); LYMPHOCYTES % (AUTO) 24.6 % (13-45); MEAN CORPUSCULAR HEMOGLOBIN 29.6 pg (27.0-33.4); MEAN CORPUSCULAR HGB CONC 33.2 g/dL (32.0-36.0); MEAN CORPUSCULAR VOLUME 89 fl (80-97); MONOCYTES % (AUTO) 9.5 % (3-13); PLATELET COUNT 121 10^3/uL (150-450); RED BLOOD COUNT 4.28 10^6/uL (3.72-5.28); SEGMENTED NEUTROPHILS % (AUTO) 62.9 % (42-78); TOTAL CELLS COUNTED % (AUTO) 100 %; WHITE BLOOD COUNT 6.3 10^3/uL (4.0-10.5)
[2017-11-26 06:12] LABS: HEMOGLOBIN 12.7 g/dL (12.0-15.5)
[2017-11-26 06:22] LABS: ANION GAP 10 (5-19); BLOOD UREA NITROGEN 30 mg/dL (7-20); CALCIUM 8.5 mg/dL (8.4-10.2); CARBON DIOXIDE 23 mmol/L (22-30); CHLORIDE 102 mmol/L (98-107); GLUCOSE 223 mg/dL (75-110); POTASSIUM 3.9 mmol/L (3.6-5.0); SODIUM 135.2 mmol/L (137-145)
--- NOTE | 2017-11-26 09:13 | PDOC CONSULTATION ---
Consultation Consult Date: 11/26/17 Consult reason:: Hematology/Oncology consultation was requested for patient with ovarian cancer currently receiving chemotherapy. History of Present Illness Admission Date/PCP: 11/25/17 13:14 MATTHEW MARION MD History of Present Illness: ANGELA DALE is a 57 year old AA female who was diagnosed with Ovarian cancer in Feb 2013. She has undergone a multitude of treatments but most recently was started on naraparib which is an oral chemotherapy pill. This was started 2017. She presented to my office earlier this week with complaints of diarrhea , nausea, vomiting, and feeling very poorly. She was given 1 L NS and IV antiemetics and told to stop the naraparib. However, over the next 48 hours, she continued to feel poorly and was unable to keep any food or liquid down, including her regular medications. She was found to have a pulse >160 and SBP< 90 and admission was arranged. In the ED, she was found to have acute renal insufficiency, Afib, UTI with evidence of urosepsis. This morning, she states that she has been able to tolerate some liquids and is able to keep her medication down, but is still unable to eat any food. She is still not feeling well. She stopped the naraparib 3 days ago. Past Medical History Cardiac Medical History: Reports: Atrial Fibrillation, Hyperlipidema, Hypertension Denies: Coronary Artery Disease, Myocardial Infarction Pulmonary Medical History: Denies: Asthma, Bronchitis, Chronic Obstructive Pulmonary Disease (COPD), Pneumonia EENT Medical History: Reports: None Neurological Medical History: Reports: Ischemic CVA Denies: Seizures Endocrine Medical History: Reports: Diabetes Mellitus Type 2 Denies: Hypothyroidism Malignancy Medical History: Reports: Ovarian Cancer GI Medical History: Reports: None Musculoskeltal Medical History: Reports: Arthritis - RIGHT KNEE Skin Medical History: Reports: None Psychiatric Medical History: Reports: Depression Hematology: Reports: Anemia Infectious Medical History: Reports: None Past Surgical History Past Surgical History: Reports: Section, Hysterectomy, Other - Left ureter stent Social History Lives with: Family Smoking Status: Never Smoker Frequency of Alcohol Use: None Hx Recreational Drug Use: No Drugs: None Hx Prescription Drug Abuse: No - Advance Directive Resuscitation Status: Full Code Family History Family History: CVA, DM, Hypertension Parental Family History Reviewed: Yes - Mother and father both of CVA Children Family History Reviewed: No Sibling(s) Family History Reviewed.: Yes - Brother with head and neck cancer. Sister with lumphoma another sister with breast cancer Medication/Allergy Home Medications: Apixaban [Eliquis] 5 mg PO Q12 11/25/17 Diltiazem HCl [Diltiazem ER] 120 mg PO DAILY 11/25/17 Ezetimibe [Zetia 10 mg Tablet] 10 mg PO DAILY 11/25/17 Gabapentin [Neurontin] 600 mg PO Q8 11/25/17 Glipizide [Glucotrol Xl 2.5 mg Tab.er] 2.5 mg PO DAILY 11/25/17 Lisinopril [Prinivil] 20 mg PO DAILY 11/25/17 Metformin HCl [Glucophage 500 mg Tablet] 500 mg PO BID 11/25/17 Morphine Sulfate [Morphine Ir 15 mg Tablet] 15 mg PO Q4HP PRN 11/25/17 Omeprazole 40 mg PO DAILY 11/25/17 Ondansetron HCl [Zofran 8 mg Tablet] 8 mg PO Q8HP PRN 11/25/17 Rosuvastatin Calcium [Crestor] 40 mg PO DAILY 11/25/17 Allergies/Adverse Reactions: No Known Allergies Allergy (Verified 11/25/17 10:21) Review of Systems Constitutional: PRESENT: chills, fatigue, night sweats Eyes: ABSENT: visual disturbances Ears: ABSENT: hearing changes Nose, Mouth, and Throat: PRESENT: headache(s). ABSENT: sore throat Cardiovascular: PRESENT: palpitations. ABSENT: chest pain, dyspnea on exertion Respiratory: ABSENT: dyspnea Gastrointestinal: PRESENT: abdominal pain, diarrhea, nausea, vomiting Genitourinary: ABSENT: dysuria Musculoskeletal: PRESENT: muscle weakness Integumentary: ABSENT: rash Neurological: PRESENT: weakness Psychiatric: ABSENT: anxiety, depression Endocrine: PRESENT: cold intolerance Physical Exam Vital Signs: Temp Pulse Resp BP Pulse Ox 98.6 F 101 H 20 136/88 H 100 11/25/17 22:55 11/26/17 07:57 11/26/17 07:57 11/25/17 22:55 11/26/17 07:57 Intake & Output 11/25/17 11/26/17 11/27/17 06:59 06:59 06:59 Intake Total 3153 Balance 3153 Weight 93 kg General appearance: PRESENT: no acute distress, well-developed, well-nourished Exam: 57 year old female. Head exam: PRESENT: atraumatic, normocephalic Eye exam: PRESENT: EOMI Mouth exam: PRESENT: tongue midline Neck exam: ABSENT: lymphadenopathy, tenderness Respiratory exam: PRESENT: clear to auscultation lawrence, unlabored Cardiovascular exam: PRESENT: irregular rhythm. ABSENT: tachycardia GI/Abdominal exam: PRESENT: soft, tenderness. ABSENT: guarding Extremities exam: ABSENT: pedal edema Musculoskeletal exam: PRESENT: normal inspection Neurological exam: PRESENT: alert, awake Psychiatric exam: PRESENT: appropriate affect Skin exam: PRESENT: normal color Results Laboratory Results: 11/26/17 05:55 11/26/17 05:55 11/26/17 11/26/17 05:55 05:55 WBC 6.3 RBC 4.28 Hgb 12.7 D Hct 38.2 MCV 89 MCH 29.6 MCHC 33.2 RDW 20.0 H Plt Count 121 L Seg Neutrophils % 62.9 Lymphocytes % 24.6 Monocytes % 9.5 Eosinophils % 1.9 Basophils % 1.1 Absolute Neutrophils 4.0 Absolute Lymphocytes 1.6 Absolute Monocytes 0.6 Absolute Eosinophils 0.1 Absolute Basophils 0.1 Sodium 135.2 L Potassium 3.9 Chloride 102 Carbon Dioxide 23 Anion Gap 10 BUN 30 H Creatinine 1.08 Est GFR ( Amer) > 60 Est GFR (Non-Af Amer) 52 L Glucose 223 H Calcium 8.5 Impressions: Abdomen/Pelvis CT 11/25/17 10:55 IMPRESSION: 1. Cholelithiasis. Cannot rule out calcification in the gallbladder wall. 2. Left ureteral stent as described. 3. No acute findings in the abdomen or pelvis. 4. Stable inguinal lymph node on the left. Status: Image reviewed by me Assessment & Plan - Diagnosis (1) Ovarian cancer Qualifiers: Laterality: right Qualified Code(s): C56.1 - Malignant neoplasm of right ovary; C56.0 - Malignant neoplasm of right ovary Is this a current diagnosis for this admission?: Yes Plan: Oral chemotherapy agent was stopped on 11/23/2017. Will make further recommendations after she is feeling better. Most recent scans have showed stable disease. (2) Nausea & vomiting Qualifiers: Vomiting type: unspecified Is this a current diagnosis for this admission?: Yes Plan: Most likely due to the naraparib, but acute infectious process is also possible. I will change diet to full liquid with oral supplements. Contin IV fluids. (3) Acute renal failure Qualifiers: Acute renal failure type: unspecified Qualified Code(s): N17.9 - Acute kidney failure, unspecified Is this a current diagnosis for this admission?: Yes Plan: Now resolved with IV fluids. (4) UTI (urinary tract infection) Qualifiers: Urinary tract infection type: site unspecified Hematuria presence: with hematuria Qualified Code(s): N39.0 - Urinary tract infection, site not specified; R31.9 - Hematuria, unspecified; R31.9 - Hematuria, unspecified Is this a current diagnosis for this admission?: Yes Plan: On ceftriaxone. Await cultures. (5) PAF (paroxysmal atrial fibrillation) Is this a current diagnosis for this admission?: Yes Plan: Rate now controlled. Continue oral anticoagulation for this. - Plan Summary Plan Summary: I will continue to follow and will be available by phone tomorrow if needed. Patient anxious to go home, but needs to be tolerating regular diet prior to discharge. Patient was discussed with Dr. Willson.
[2017-11-26] MEDS: APIXABAN 5 MG TABLET PO SCH ×2 (09:14→21:20)
[2017-11-26] MEDS: FAMOTIDINE INJ/PF 20 MG/2 ML SDV IV SCH ×2 (09:14→21:21)
[2017-11-26] MEDS: EZETIMIBE 10 MG TABLET PO SCH (09:14)
[2017-11-26] MEDS: DILTIAZEM HCL 120 MG CAP.SR.24H PO SCH (09:14)
[2017-11-26] MEDS: LISINOPRIL 10 MG TABLET PO SCH (09:19)
[2017-11-26] MEDS: CEFTRIAXONE SODIUM 1,000 MG in DEXTROSE 5%-WATER 50 ML IV SCH (09:20)
[2017-11-26] MEDS ORDERED: CEFTRIAXONE 1 GM/D5W RTU 1 GM/50 ML RTUPB IV SCH (10:00)
[2017-11-26] MEDS ORDERED: (PENDING PHARMACY ID) (Lisinopril [Prinivil] 20 MG) PO SCH (10:00)
[2017-11-26] MEDS ORDERED: (PENDING PHARMACY ID) (Rosuvastatin Calcium [Crestor] 40 MG) PO SCH (10:00)
[2017-11-26] MEDS ORDERED: METOCLOPRAMIDE HCL INJ/PF 10 MG/2 ML SDV IV ONE (12:42)
[2017-11-26] MEDS ORDERED: PROMETHAZINE HCL INJ 25 MG/1 ML VIAL IV PRN (12:42)
[2017-11-26] MEDS ORDERED: CLONIDINE HCL 0.2 MG TABLET PO ONE (16:02)
[2017-11-26] MEDS ORDERED: CHLORTHALIDONE 25 MG TABLET PO SCH ×2 (16:15→16:36)
[2017-11-26] MEDS ORDERED: SPIRONOLACTONE 25 MG TABLET PO SCH (16:15)
--- NOTE | 2017-11-26 16:23 | PDOC PROGRESS REPORT ---
Subjective Progress Note for:: 11/26/17 Subjective:: The patient is a 57 year old female with a past medical history of hypertension , PAF (chronically anticoagulated on Eliquis), CVA, hyperlipidemia, DM 2, and stage III ovarian cancer who was admitted 11/25/17 for urinary tract infection, DENISE, dehydration, and hypertension. She is seen on morning rounds today. She is found resting in bed on room air. She appears to be in obvious discomfort related to headache and nausea. She reports that her headache has been waxing and waning but has not really resolved. She also endorses a sensation of indigestion that is difficult to describe, associated with nausea but without emesis. She denies fever, chills, chest pain, palpitations, dyspnea, cough, abdominal pain, dysuria, hematuria, urgency/frequency, constipation and diarrhea. She has no specific questions today; only asks that we assist her and feeling better. Reason For Visit: UTI, DENISE, INTRACTABLE N/V Physical Exam Vital Signs: Temp Pulse Resp BP Pulse Ox 98.0 F 90 18 182/111 H 100 11/26/17 12:00 11/26/17 16:05 11/26/17 16:05 11/26/17 12:00 11/26/17 16:05 Intake & Output 11/25/17 11/26/17 11/27/17 06:59 06:59 06:59 Intake Total 3153 Balance 3153 Weight 93 kg General appearance: PRESENT: no acute distress, cooperative, obese, well- developed, well-nourished Head exam: PRESENT: atraumatic, normocephalic Eye exam: PRESENT: conjunctiva pink, EOMI, PERRLA. ABSENT: scleral icterus Ear exam: PRESENT: normal external ear exam Mouth exam: PRESENT: moist, tongue midline Neck exam: ABSENT: carotid bruit, JVD, lymphadenopathy, thyromegaly Respiratory exam: PRESENT: clear to auscultation lawrence, symmetrical, unlabored. ABSENT: rales, rhonchi, wheezes Cardiovascular exam: PRESENT: RRR. ABSENT: diastolic murmur, rubs, systolic murmur Pulses: PRESENT: normal dorsalis pedis pul Vascular exam: PRESENT: normal capillary refill GI/Abdominal exam: PRESENT: normal bowel sounds, soft. ABSENT: distended, guarding, mass, organolmegaly, rebound, tenderness Rectal exam: PRESENT: deferred Extremities exam: PRESENT: full ROM. ABSENT: calf tenderness, clubbing, pedal edema Neurological exam: PRESENT: alert, awake, oriented to person, oriented to place , oriented to time, oriented to situation, CN II-XII grossly intact. ABSENT: motor sensory deficit Psychiatric exam: PRESENT: appropriate affect, normal mood. ABSENT: homicidal ideation, suicidal ideation Skin exam: PRESENT: dry, intact, warm. ABSENT: cyanosis, rash Results Laboratory Results: 11/26/17 05:55 11/26/17 05:55 11/26/17 11/26/17 05:55 05:55 WBC 6.3 RBC 4.28 Hgb 12.7 D Hct 38.2 MCV 89 MCH 29.6 MCHC 33.2 RDW 20.0 H Plt Count 121 L Seg Neutrophils % 62.9 Lymphocytes % 24.6 Monocytes % 9.5 Eosinophils % 1.9 Basophils % 1.1 Absolute Neutrophils 4.0 Absolute Lymphocytes 1.6 Absolute Monocytes 0.6 Absolute Eosinophils 0.1 Absolute Basophils 0.1 Sodium 135.2 L Potassium 3.9 Chloride 102 Carbon Dioxide 23 Anion Gap 10 BUN 30 H Creatinine 1.08 Est GFR ( Amer) > 60 Est GFR (Non-Af Amer) 52 L Glucose 223 H Calcium 8.5 Impressions: Abdomen/Pelvis CT 11/25/17 10:55 IMPRESSION: 1. Cholelithiasis. Cannot rule out calcification in the gallbladder wall. 2. Left ureteral stent as described. 3. No acute findings in the abdomen or pelvis. 4. Stable inguinal lymph node on the left. Assessment & Plan - Diagnosis (1) Acute renal failure Qualifiers: Acute renal failure type: unspecified Qualified Code(s): N17.9 - Acute kidney failure, unspecified Is this a current diagnosis for this admission?: Yes Plan: Improved; Cr 1.43--> 1.08 following IVF. Baseline of 1.10. BUN is improved. Prerenal acute kidney failure secondary to dehydration; the patient endorses 1 week of nausea and vomiting with poor p.o. intake. The patient was admitted to the medical floor on continuous cardiac telemetry. She has received ~ 4L of IVF; will place on hold to prevent fluid volume overload as patient is tolerating clear liquids. Encourage p.o. fluids. Avoid nephrotoxic medications as able. Daily chemistries. (2) UTI (urinary tract infection) Qualifiers: Urinary tract infection type: site unspecified Hematuria presence: with hematuria Qualified Code(s): N39.0 - Urinary tract infection, site not specified; R31.9 - Hematuria, unspecified; R31.9 - Hematuria, unspecified Is this a current diagnosis for this admission?: Yes Plan: The patient endorses suprapubic abdominal pain. She does report 1 week of malaise, fever and chills, and nausea and vomiting. She denies urinary urgency , frequency, dysuria. Urinalysis is positive for urinary tract infection. Blood cultures are negative at 24 hours. Urine culture shows mixed urogenital jenn. She has empirically placed on Rocephin; has received 2 doses. Will discontinue abx tomorrow following 3rd dose. Tylenol as needed for fever or discomfort. (3) HTN (hypertension) Is this a current diagnosis for this admission?: Yes Plan: Severe, uncontrolled, hypertension. The patient's home dose diltiazem CD 120 mg daily and lisinopril 20 mg daily are resumed. Start chlorthalidone 25 mg daily. Clonidine 0.2 mg p.o. x1; monitor for effect, consider scheduled dosing. IV hydralazine for blood pressure control. Low-sodium diet. Daily weights with strict I&Os. Consider Cardiology consultation; pt sees Dr. Casas as an outpatient. (4) Nausea & vomiting Qualifiers: Vomiting type: unspecified Is this a current diagnosis for this admission?: Yes Plan: Multifactorial secondary to new p.o. chemotherapy agent in addition to UTI. As needed zofran and phenergan. Pepcid twice daily. Advance diet as tolerated. (5) PAF (paroxysmal atrial fibrillation) Is this a current diagnosis for this admission?: Yes Plan: The patient endorses a history of atrial fibrillation; on Cardizem and Eliquis as an outpatient. Followed by Dr. Casas. The patient reports that she has been able to tolerate her medications for several days due to nausea and vomiting. Upon arrival to her oncologist office, she was found to have a heart rate in the 160s with hypotension 70s/40s; likely A. fib with RVR secondary to missed medication doses and dehydration. Upon arrival to the emergency department her heart rate had spontaneously decreased to the low 100s and she was hypertensive. Patient denies episode of chest pain or palpitations. EKG demonstrated NSR. We will manage her nausea and vomiting as outlined above so that she may tolerate her medications. Resume home medication regimen; Cardizem and Eliquis. Patient is admitted on continuous cardiac telemetry; will monitor closely for dysrhythmias. If she is unable to tolerate p.o. medications and afib rvr is observed; will need to upgrade to IMCU for IV diltiazem Consider cardiology consultation. (6) Diabetes Qualifiers: Diabetes mellitus type: type 2 Diabetes mellitus intermediate frame tender insulin use: without correction use Diabetes mellitus complication status: with hyperglycemia Qualified Code(s): E11.65 - Type 2 diabetes mellitus with hyperglycemia Is this a current diagnosis for this admission?: Yes Plan: The patient endorses a history of DM 2 managed with oral medications. We will hold oral anti-glycemic's while inpatient secondary to DENISE. She is placed on a consistent carb diet. Accu-Cheks before meals and at bedtime with Humalog for sliding scale coverage. (7) Ovarian cancer Qualifiers: Laterality: right Qualified Code(s): C56.1 - Malignant neoplasm of right ovary; C56.0 - Malignant neoplasm of right ovary Is this a current diagnosis for this admission?: Yes Plan: Patient has had poor tolerance of new p.o. chemotherapy medication. She is established with Dr. Pennington; will place consult for continuity of care. - Time Time Spent with patient: 25-34 minutes Medications reviewed and adjusted accordingly: Yes Anticipated discharge: Home - Inpatient Certification Based on my medical assessment, after consideration of the patient's comorbidities, presenting symptoms, or acuity I expect that the services needed warrant INPATIENT care.: Yes I certify that my determination is in accordance with my understanding of Medicare's requirements for reasonable and necessary INPATIENT services [42 CFR 412.3e].: Yes Medical Necessity: Failure to Improve With Outpatient Therapy, Need Close Monitoring Due to Risk of Patient Decompensation, Need For Continuous Telemetry Monitoring, Need for Pain Control
[2017-11-26] MEDS: METOCLOPRAMIDE HCL INJ/PF 10 MG/2 ML SDV IV SCH ×2 (18:56→23:09)
[2017-11-26] MEDS: INSULIN LISPRO 100 UNIT/ML 3 ML VIAL SUBCUT PRN (21:21)
[2017-11-26] MEDS ORDERED: ATORVASTATIN CALCIUM 80 MG TABLET PO SCH (22:00)
[2017-11-26] MEDS ORDERED: CARVEDILOL 12.5 MG TABLET PO SCH (22:00)
[2017-11-27] MEDS ORDERED: NORMAL SALINE 1000 ML 1,000 ML IV ONE (04:00)
[2017-11-27] MEDS: METOCLOPRAMIDE HCL INJ/PF 10 MG/2 ML SDV IV SCH ×2 (05:04→12:09)
[2017-11-27 05:40] LABS: HEMATOCRIT 34.4 % (36.0-47.0); HEMOGLOBIN 11.1 g/dL (12.0-15.5); MEAN CORPUSCULAR HEMOGLOBIN 29.1 pg (27.0-33.4); MEAN CORPUSCULAR HGB CONC 32.4 g/dL (32.0-36.0); MEAN CORPUSCULAR VOLUME 90 fl (80-97); PLATELET COUNT 106 10^3/uL (150-450); RED BLOOD COUNT 3.83 10^6/uL (3.72-5.28); RED CELL DISTRIBUTION WIDTH 19.4 % (11.5-14.0); WHITE BLOOD COUNT 6.1 10^3/uL (4.0-10.5)
[2017-11-27 06:01] LABS: ANION GAP 8 (5-19); BLOOD UREA NITROGEN 20 mg/dL (7-20); CALCIUM 8.4 mg/dL (8.4-10.2); CARBON DIOXIDE 23 mmol/L (22-30); CHLORIDE 105 mmol/L (98-107); GLUCOSE 190 mg/dL (75-110); POTASSIUM 3.5 mmol/L (3.6-5.0); SODIUM 135.9 mmol/L (137-145)
--- NOTE | 2017-11-27 09:42 | PDOC PROGRESS REPORT ---
Subjective Progress Note for:: 11/27/17 Subjective:: Patient is feeling much better. She was able to tolerate regular diet this morning and it is staying down. She also had a normal BM this morning without abdominal pain. She is anxious to go home. Reason For Visit: UTI, DENISE, INTRACTABLE N/V Physical Exam Vital Signs: Temp Pulse Resp BP Pulse Ox 98.1 F 86 16 124/84 100 11/27/17 08:00 11/27/17 08:00 11/27/17 08:00 11/27/17 08:00 11/27/17 08:00 Intake & Output 11/26/17 11/27/17 11/28/17 06:59 06:59 06:59 Intake Total 3153 2999 1 Balance 3153 2999 1 Weight 93 kg 92.8 kg General appearance: PRESENT: no acute distress Respiratory exam: PRESENT: unlabored Neurological exam: PRESENT: alert, awake Psychiatric exam: PRESENT: appropriate affect Skin exam: PRESENT: normal color Results Laboratory Results: 11/27/17 05:20 11/27/17 05:20 11/27/17 11/27/17 11/27/17 05:20 05:20 05:20 WBC 6.1 RBC 3.83 Hgb 11.1 L Hct 34.4 L MCV 90 MCH 29.1 MCHC 32.4 RDW 19.4 H Plt Count 106 L Sodium 135.9 L Potassium 3.5 L Chloride 105 Carbon Dioxide 23 Anion Gap 8 BUN 20 Creatinine 1.09 Est GFR ( Amer) > 60 Est GFR (Non-Af Amer) 52 L Glucose 190 H Calcium 8.4 TSH 2.35 11/27/17 05:20 NT-Pro-B Natriuret Pep 375 Impressions: Abdomen/Pelvis CT 11/25/17 10:55 IMPRESSION: 1. Cholelithiasis. Cannot rule out calcification in the gallbladder wall. 2. Left ureteral stent as described. 3. No acute findings in the abdomen or pelvis. 4. Stable inguinal lymph node on the left. Assessment & Plan - Diagnosis (1) Ovarian cancer Qualifiers: Laterality: right Qualified Code(s): C56.1 - Malignant neoplasm of right ovary; C56.0 - Malignant neoplasm of right ovary Is this a current diagnosis for this admission?: Yes (2) Nausea & vomiting Qualifiers: Vomiting type: unspecified Is this a current diagnosis for this admission?: Yes Plan: Now resolved. May continue Zofran 8 mg ODT q 8 hours PRN as outpatient if needed. (3) Acute renal failure Qualifiers: Acute renal failure type: unspecified Qualified Code(s): N17.9 - Acute kidney failure, unspecified Is this a current diagnosis for this admission?: Yes Plan: Now resolved with IV hydration. Her potassium was a bit low this morning. Most likely due to the extra fluids and vomiting and diarrhea. She will increase oral potassium in her diet and I will repeat labs on Tuesday in my office. (4) UTI (urinary tract infection) Qualifiers: Urinary tract infection type: site unspecified Hematuria presence: with hematuria Qualified Code(s): N39.0 - Urinary tract infection, site not specified; R31.9 - Hematuria, unspecified; R31.9 - Hematuria, unspecified Is this a current diagnosis for this admission?: Yes Plan: Continue appropriate antibiotics for this. (5) PAF (paroxysmal atrial fibrillation) Is this a current diagnosis for this admission?: Yes Plan: Now better, once tolerating her home meds. Continue home meds for this as before admission. - Plan Summary Plan Summary: I am OK with discharge today and follow-up in my office in 2 days to repeat CBC , CMP.
[2017-11-27] MEDS: EZETIMIBE 10 MG TABLET PO SCH (10:25)
[2017-11-27] MEDS: DILTIAZEM HCL 120 MG CAP.SR.24H PO SCH (10:26)
[2017-11-27] MEDS: APIXABAN 5 MG TABLET PO SCH (10:26)
[2017-11-27] MEDS: CEFTRIAXONE SODIUM 1,000 MG in DEXTROSE 5%-WATER 50 ML IV SCH (10:28)
[2017-11-27] MEDS: LISINOPRIL 10 MG TABLET PO SCH (10:29)
[2017-11-27] MEDS: FAMOTIDINE INJ/PF 20 MG/2 ML SDV IV SCH (10:41)
[2017-11-27] MEDS: INSULIN LISPRO 100 UNIT/ML 3 ML VIAL SUBCUT PRN (12:08)
[2017-11-27 12:49] VITALS: BP 124/84
--- NOTE | 2017-11-27 17:03 | PDOC DISCHARGE SUMMARY ---
General - Admit/Disc Date/PCP Admission Date/Primary Care Provider: 11/25/17 13:14 MATTHEW MARION MD Discharge Date: 11/27/17 - Discharge Diagnosis (1) Acute renal failure Is this a current diagnosis for this admission?: Yes Summary: Resolved; creatinine trended down from 1.43 to 1.09. The patient's baseline is 1.10. (2) UTI (urinary tract infection) Is this a current diagnosis for this admission?: Yes Summary: Urinalysis positive for urinary tract infection. Urine culture with mixed urogenital jenn. Blood cultures have no growth at 48 hours. The patient received 3 days of IV Rocephin. (3) HTN (hypertension) Is this a current diagnosis for this admission?: Yes Summary: Normotensive following resumption of home medications lisinopril and diltiazem with the addition of chlorthalidone. (4) Nausea & vomiting Is this a current diagnosis for this admission?: Yes Summary: Resolved. (5) PAF (paroxysmal atrial fibrillation) Is this a current diagnosis for this admission?: Yes Summary: The patient has a history of atrial fibrillation, on diltiazem and Eliquis due to history of CVA. Per report, the patient presented to Dr. Ball's office with a heart rate in the 160s and profound hypotension. However, upon arrival to the emergency department, her heart rate was in the low 100s and she was found to be hypertensive. EKG demonstrated normal sinus rhythm. TSH is normal. She is presumed to have had an episode of PAF due to multiple days of missed medications. She was monitor on continuous cardiac telemetry throughout her admission; she remained in normal sinus throughout. Her home medications were resumed and vital signs are now stable. She is recommended to follow-up with her primary screen stretcher as scheduled. (6) Diabetes Is this a current diagnosis for this admission?: Yes (7) Ovarian cancer Is this a current diagnosis for this admission?: Yes Summary: Dr. Pennington was consulted; appreciate her assistance. Pt to follow up at her office in 2 days with follow up labs. - Additional Information Resuscitation Status: Full Code Discharge Diet: As Tolerated, Cardiac Discharge Activity: Activity As Tolerated, Balance Activity w/Rest, Slowly Increase Activity Prescriptions: Chlorthalidone [Hygroton 25 mg Tablet] 12.5 mg PO DAILY #30 tablet Ondansetron HCl [Zofran 8 mg Tablet] 8 mg PO Q8HP PRN #12 tablet PRN Reason: For Nausea/Vomiting Promethazine HCl [Phenergan 25 mg Supp.rect] 1 supp NE Q8HP PRN #12 supp.rect PRN Reason: Unresolved Nausea/Vomiting Home Medications: Apixaban [Eliquis] 5 mg PO Q12 11/25/17 Diltiazem HCl [Diltiazem ER] 120 mg PO DAILY 11/25/17 Ezetimibe [Zetia 10 mg Tablet] 10 mg PO DAILY 11/25/17 Gabapentin [Neurontin] 600 mg PO Q8 11/25/17 Glipizide [Glucotrol Xl 2.5 mg Tab.er] 2.5 mg PO DAILY 11/25/17 Lisinopril [Prinivil] 20 mg PO DAILY 11/25/17 Metformin HCl [Glucophage 500 mg Tablet] 500 mg PO BID 11/25/17 Morphine Sulfate [Morphine Ir 15 mg Tablet] 15 mg PO Q4HP PRN 11/25/17 Omeprazole 40 mg PO DAILY 11/25/17 Rosuvastatin Calcium [Crestor] 40 mg PO DAILY 11/25/17 Acetaminophen [Tylenol 325 mg Tablet] 650 mg PO Q4HP PRN tablet 11/27/17 Chlorthalidone [Hygroton 25 mg Tablet] 12.5 mg PO DAILY #30 tablet 11/27/17 Ondansetron HCl [Zofran 8 mg Tablet] 8 mg PO Q8HP PRN #12 tablet 11/27/17 Promethazine HCl [Phenergan 25 mg Supp.rect] 1 supp NE Q8HP PRN #12 supp.rect History of Present Illness History of Present Illness: ANGELA DALE is a 57 year old female with a past medical history of hypertension, PAF (chronically anticoagulated on Eliquis), CVA, hyperlipidemia, DM 2, and stage III ovarian cancer managed by Dr. Pennington who was sent to the emergency department from her office after presenting with a complaint of N/V with fever and chills x 1 week that began after starting a new oral chemotherapy medication. Reportedly, the patient had a heart rate of 166 and blood pressure of 74/56 at their office. The patient does confirm that she has been unable to tolerate her home medications for several days due to nausea and vomiting; likely the above vital signs were in episode of PAF. Evaluation in the emergency department reveals sinus tach (heart rate 117; improved to 89 following 1 L NS bolus), BP 156/100, and unremarkable CBC, chemistry revealing AK I with creatinine of 1.43 and BUN of 38, and urinalysis grossly positive for UTI. A CT of the abdomen demonstrated cholelithiasis, left ureteral stent, stable inguinal left lymph node, in no acute findings. She was referred to the hospitalist service for observational admission and management of urinary tract infection and DENISE secondary to dehydration. Hospital Course Hospital Course: The patient was admitted with DENISE secondary to dehydration and urinary tract infection; the patient had had several days of nausea and vomiting and poor p.o. intake related to side effects of p.o. chemotherapy agent. The patient was admitted to the medical floor and continuous cardiac telemetry. She received IV fluid resuscitation and was started on IV Rocephin for her urinary tract infection. Blood pressure control was obtained by resumption of her home medication regiment and the addition of chlorthalidone. Her symptoms gradually improved and her diet was advanced as tolerated. At time of discharge, the patient was in stable condition, asymptomatic, and tolerating a regular diet. She was discharged home with recommendations to follow-up with her primary care provider within [address] Pennington in 2 days. Physical Exam Vital Signs: Temp Pulse Resp BP Pulse Ox 97.9 F 83 14 124/84 100 11/27/17 12:47 11/27/17 12:47 11/27/17 12:47 11/27/17 12:47 11/27/17 12:47 Intake & Output 11/26/17 11/27/17 11/28/17 06:59 06:59 06:59 Intake Total 3153 2999 51 Balance 3153 2999 51 Weight 93 kg 92.8 kg General appearance: PRESENT: no acute distress, cooperative, obese, well- developed, well-nourished Head exam: PRESENT: atraumatic, normocephalic Eye exam: PRESENT: conjunctiva pink, EOMI, PERRLA. ABSENT: scleral icterus Ear exam: PRESENT: normal external ear exam Mouth exam: PRESENT: moist, tongue midline Neck exam: ABSENT: carotid bruit, JVD, lymphadenopathy, thyromegaly Respiratory exam: PRESENT: clear to auscultation lawrence, symmetrical, unlabored. ABSENT: rales, rhonchi, wheezes Cardiovascular exam: PRESENT: RRR. ABSENT: diastolic murmur, rubs, systolic murmur Pulses: PRESENT: normal dorsalis pedis pul Vascular exam: PRESENT: normal capillary refill GI/Abdominal exam: PRESENT: normal bowel sounds, soft. ABSENT: distended, guarding, mass, organolmegaly, rebound, tenderness Rectal exam: PRESENT: deferred Extremities exam: PRESENT: full ROM. ABSENT: calf tenderness, clubbing, pedal edema Neurological exam: PRESENT: alert, awake, oriented to person, oriented to place , oriented to time, oriented to situation, CN II-XII grossly intact. ABSENT: motor sensory deficit Psychiatric exam: PRESENT: appropriate affect, normal mood. ABSENT: homicidal ideation, suicidal ideation Skin exam: PRESENT: dry, intact, warm. ABSENT: cyanosis, rash Results Laboratory Results: 11/27/17 05:20 11/27/17 05:20 11/27/17 11/27/17 11/27/17 05:20 05:20 05:20 WBC 6.1 RBC 3.83 Hgb 11.1 L Hct 34.4 L MCV 90 MCH 29.1 MCHC 32.4 RDW 19.4 H Plt Count 106 L Sodium 135.9 L Potassium 3.5 L Chloride 105 Carbon Dioxide 23 Anion Gap 8 BUN 20 Creatinine 1.09 Est GFR ( Amer) > 60 Est GFR (Non-Af Amer) 52 L Glucose 190 H Calcium 8.4 TSH 2.35 11/27/17 05:20 NT-Pro-B Natriuret Pep 375 Impressions: Abdomen/Pelvis CT 11/25/17 10:55 IMPRESSION: 1. Cholelithiasis. Cannot rule out calcification in the gallbladder wall. 2. Left ureteral stent as described. 3. No acute findings in the abdomen or pelvis. 4. Stable inguinal lymph node on the left. Qualifiers - * PATIENT BEING DISCHARGED WITH ANY OF THE FOLLOWING DIAGNOSIS: No Plan Discharge Plan: Discharge to home. Follow-up with primary care provider within 1 week. Follow-up with Dr. Ball in 2 days. Time Spent: Less than 30 Minutes
== END 2017-11-27 13:00 | disposition home or self-care (01) ==
LOC: ER 10:21 → EH 13:14 → 5 15:10
PROVIDERS: ADMIT Internal Medicine; ATTEND Internal Medicine
DX: N17.9 Acute kidney failure, unspecified (principal); E86.0 Dehydration; N39.0 Urinary tract infection, site not specified; R31.9 Hematuria, unspecified; I10 Essential (primary) hypertension; R11.2 Nausea with vomiting, unspecified; T45.1X5A Adverse effect of antineoplastic and immunosuppressive drugs, initial encounter; I48.0 Paroxysmal atrial fibrillation; E11.65 Type 2 diabetes mellitus with hyperglycemia; C56.1 Malignant neoplasm of right ovary; E78.5 Hyperlipidemia, unspecified; R51 Headache; M62.81 Muscle weakness (generalized); R61 Generalized hyperhidrosis; K80.20 Calculus of gallbladder without cholecystitis without obstruction; K30 Functional dyspepsia; R19.7 Diarrhea, unspecified; Z79.84 Long term (current) use of oral hypoglycemic drugs; Z79.02 Long term (current) use of antithrombotics/antiplatelets; Z86.73 Personal history of transient ischemic attack (TIA), and cerebral infarction without residual deficits; Z79.899 Other long term (current) drug therapy; Z96.0 Presence of urogenital implants; Z90.710 Acquired absence of both cervix and uterus; Z80.7 Family history of other malignant neoplasms of lymphoid, hematopoietic and related tissues; Z23 Encounter for immunization
CPT/HCPCS: 93005; 36591; 99285; 96361; 96375; 96365; 36415; 87040; 87086; 82962 ×3; 83605; 83690; 84443; 85025 ×2; 85027; 80048 ×2; 80053; 81001; 83880; 74177; 90686; 93010; G0378 ×3; G0008; A9270 ×14; J0360 ×2; J2765 ×2; J2550; J0696 ×3; J3490 ×3; J2405 ×2; J7030 ×3; S0028 ×3; 90471; J1815

== ENCOUNTER → 2018-01-31 | Outpatient (CLI) | payer MEDICARE, MEDICAID ==
[2018-02-01 09:27] LABS: ABSOLUTE EOSINOPHILS # (AUTO) 0.1 10^3/uL (0.0-0.6); ABSOLUTE LYMPHOCYTES (AUTO) 1.6 10^3/uL (0.5-4.7); ABSOLUTE MONOCYTES (AUTO) 0.4 10^3/uL (0.1-1.4); ABSOLUTE NEUT (AUTO) 2.7 10^3/uL (1.7-8.2); BASOPHILS % (AUTO) 0.7 % (0-2); EOSINOPHILS % (AUTO) 2.6 % (0-6); HEMATOCRIT 36.2 % (36.0-47.0); HEMOGLOBIN 11.7 g/dL (12.0-15.5); LYMPHOCYTES % (AUTO) 33.9 % (13-45); MEAN CORPUSCULAR HEMOGLOBIN 28.6 pg (27.0-33.4); MEAN CORPUSCULAR HGB CONC 32.2 g/dL (32.0-36.0); MEAN CORPUSCULAR VOLUME 89 fl (80-97); MONOCYTES % (AUTO) 7.7 % (3-13); PLATELET COUNT 171 10^3/uL (150-450); RED BLOOD COUNT 4.08 10^6/uL (3.72-5.28); RED CELL DISTRIBUTION WIDTH 16.8 % (11.5-14.0); SEGMENTED NEUTROPHILS % (AUTO) 55.1 % (42-78); TOTAL CELLS COUNTED % (AUTO) 100 %; WHITE BLOOD COUNT 4.8 10^3/uL (4.0-10.5)
[2018-02-01 09:51] LABS: ANION GAP 6 (5-19); BLOOD UREA NITROGEN 21 mg/dL (7-20); CALCIUM 9.6 mg/dL (8.4-10.2); CARBON DIOXIDE 29 mmol/L (22-30); CHLORIDE 105 mmol/L (98-107); CHOLESTEROL 156.99 mg/dL (0-200); GLUCOSE 162 mg/dL (75-110); POTASSIUM 4.6 mmol/L (3.6-5.0); SODIUM 140.2 mmol/L (137-145); TRIGLYCERIDES 89 mg/dL (<150)
[2018-02-01 10:06] LABS: DIRECT LDL 73 mg/dL (<100)
[2018-02-02 11:39] LABS: CREATININE URINE 106.2 mg/dL (Not Estab.)
== END ==
LOC: OD 08:38
PROVIDERS: ATTEND Family Medicine Geriatric Medicine
DX: E78.5 Hyperlipidemia, unspecified (principal); I10 Essential (primary) hypertension; Z79.899 Other long term (current) drug therapy
CPT/HCPCS: 36415; 80048; 80061; 82043; 82570; 83036; 84460; 85025

== ENCOUNTER → 2018-04-17 | Outpatient (CLI) | payer MEDICARE, MEDICAID ==
--- NOTE | 2018-04-17 11:33 | RADIOLOGY REPORT (SQ) ---
EXAM DESCRIPTION: CT ABD/PELVIS NO ORAL OR IV COMPLETED DATE/TIME: 04/17/2018 10:31 am REASON FOR STUDY: C56.1 MALIGNANT NEOPLASM OF RIGHT OVARY C56.1 MALIGNANT NEOPLASM OF RIGHT OVARY COMPARISON: 06/16/2017, 11/25/2017 TECHNIQUE: CT scan of the abdomen and pelvis performed without intravenous or oral contrast. Images reviewed with lung, soft tissue, and bone windows. Reconstructed coronal and sagittal MPR images revi ewed. All images stored on PACS. All CT scanners at this facility use dose modulation, iterative reconstruction, and/or weight based d osing when appropriate to reduce radiation dose to as low as reasonably achievable (ALARA). [facility]: Dose Right [facility]: CareDose [facility]: Dose Right [facility]: Teradose 4D [facility]: [employer] RADIATION DOSE: CT Rad equipment meets quality standard of care and radiation dose reduction techniq ues were employed. CTDIvol: 7.2 mGy. DLP: 401 mGy-cm.mGy. LIMITATIONS: None. FINDINGS: LOWER CHEST: Stable 1.5 mm pleural-based nodule left lower lobe. NON-CONTRASTED LIVER, SPLEEN, ADRENALS: Evaluation limited by lack of IV contrast. No identified sign ificant masses. PANCREAS: No masses. No peripancreatic inflammatory changes. GALLBLADDER: Gallstones. No inflammatory changes to suggest cholecystitis. RIGHT KIDNEY AND URETER: No suspicious masses. Assessment limited by lack of IV contrast. No signif icant calcifications. No hydronephrosis or hydroureter. LEFT KIDNEY AND URETER: Left ureteral stent position is unchanged. Chronic rind of tissue in the di stal ureter surrounding the stent. Marked dilatation of the renal pelvis and calices compared to th e prior. AORTA AND RETROPERITONEUM: No aneurysm. No retroperitoneal masses or adenopathy. BOWEL AND PERITONEAL CAVITY: No obvious masses or inflammatory changes. No free fluid. APPENDIX: Normal. PELVIS, BLADDER, AND ABDOMINAL WALL:2.1 x 1.6 cm left inguinal node is stable. Distal stent in the u rinary bladder. BONES: Nothing acute. OTHER: No other significant finding. IMPRESSION: Interval development of marked hydronephrosis on the left suggesting stent malfunction. Urology consultation is recommended. COMMENT: Quality ID # [id number]: Final reports with documentation of one or more dose reduction techniques (e.g., Automated exposure control, adjustment of the mA and/or kV according to patient size, use of iterative reconstruction technique) TECHNICAL DOCUMENTATION: JOB ID: [id number] [employer]- All Rights Reserved Reading location - IP/workstation name: [email or web address]
== END ==
LOC: RAD 09:21
PROVIDERS: ATTEND Internal Medicine Hematology & Oncology
DX: C56.1 Malignant neoplasm of right ovary (principal); N13.39 Other hydronephrosis
CPT/HCPCS: 74176; 82565

== ENCOUNTER → 2018-08-04 | Outpatient (CLI) | payer MEDICARE, MEDICAID ==
--- NOTE | 2018-08-04 10:34 | RADIOLOGY REPORT (SQ) ---
EXAM DESCRIPTION: CT ABD/PELVIS WITH IV ORAL COMPLETED DATE/TIME: 08/04/2018 9:31 am REASON FOR STUDY: OVARIAN CA C56.1 MALIGNANT NEOPLASM OF RIGHT OVARY COMPARISON: PET-CT 06/21/2017 CT abdomen pelvis 06/16/2017, 11/02/2017, 11/25/2017, 04/17/2018 TECHNIQUE: CT scan of the abdomen and pelvis performed using helical scanning technique with dynamic intravenous contrast injection. Patient drank oral contrast. Images reviewed with lung, soft tissue , and bone windows. Reconstructed coronal and sagittal MPR images reviewed. Delayed images for evalua tion of the urinary system also acquired. All images stored on PACS. All CT scanners at this facility use dose modulation, iterative reconstruction, and/or weight based d osing when appropriate to reduce radiation dose to as low as reasonably achievable (ALARA). [facility]: Dose Right [facility]: CareDose [facility]: Dose Right [facility]: Teradose 4D [facility]: [employer] CONTRAST TYPE AND DOSE: contrast/concentration: Isovue 350.00 mg/ml; Total Contrast Delivered: 86.0 ml; Total Saline Delivered: 69.0 ml RENAL FUNCTION: Creatinine 0.9 RADIATION DOSE: CT Rad equipment meets quality standard of care and radiation dose reduction techniq ues were employed. CTDIvol: 6.0 - 7.1 mGy. DLP: 690 mGy-cm.. LIMITATIONS: None. FINDINGS: LOWER CHEST: Stable left lower lobe posterior costophrenic sulcus 1.5 cm nodule (was non m etabolic 06/21/2017 PET-CT). LIVER: Normal size. No masses. No dilated ducts. SPLEEN: Normal size. No focal lesions. PANCREAS: No masses. No significant calcifications. No adjacent inflammation or peripancreatic fluid collections. Pancreatic duct not dilated. GALLBLADDER: Calcified stone in the gallbladder. No gallbladder wall thickening or pericholecystic f luid ADRENAL GLANDS: No significant masses or asymmetry. RIGHT KIDNEY AND URETER: No solid masses. No significant calcifications. No hydronephrosis or hyd roureter. LEFT KIDNEY AND URETER: No solid masses. No significant calcifications. No hydronephrosis or hydr oureter. Unchanged left-sided nephrectomy catheter AORTA AND VESSELS: No aneurysm. No dissection. Renal arteries, SMA, celiac without stenosis. RETROPERITONEUM: No retroperitoneal adenopathy, hemorrhage or masses. BOWEL AND PERITONEAL CAVITY: No masses or inflammatory changes. No free fluid or peritoneal masses. APPENDIX: Normal. PELVIS: Post hysterectomy. There is left-sided pelvic adenopathy worrisome for recurrent ovarian can cer as follows: New left external iliac lymph node 2.4 x 2.1 cm in size, axial image 71/97 New 2.1 x 1.1 cm left external iliac lymph node, axial image 76/97 increase size left inguinal lymph node, 2.8 x 2.3 cm in size axial image 90/97 (was 2.1 x 1.6 cm on 04/17/2018). ABDOMINAL WALL: No masses. No hernias. BONES: No significant or acute findings. OTHER: No other significant finding. IMPRESSION: New left external iliac lymph nodes, increasing size left inguinal lymph node worrisome for tumor recurrence TECHNICAL DOCUMENTATION: JOB ID: [id number] Quality ID # [id number]: Final reports with documentation of one or more dose reduction techniques (e.g., Au tomated exposure control, adjustment of the mA and/or kV according to patient size, use of iterative reconstruction technique) 2010 [employer]- All Rights Reserved Reading location - IP/workstation name: [email or web address]
== END ==
LOC: RAD 08:21
PROVIDERS: ATTEND Internal Medicine Hematology & Oncology
DX: C56.1 Malignant neoplasm of right ovary (principal)
CPT/HCPCS: 74177; 82565

== ENCOUNTER → 2018-09-09 | Outpatient (CLI) | payer MEDICARE, MEDICAID ==
[2018-09-09 11:37] LABS: ABSOLUTE EOSINOPHILS # (AUTO) 0.1 10^3/uL (0.0-0.6); ABSOLUTE LYMPHOCYTES (AUTO) 1.7 10^3/uL (0.5-4.7); ABSOLUTE MONOCYTES (AUTO) 0.5 10^3/uL (0.1-1.4); BASOPHILS % (AUTO) 0.5 % (0-2); EOSINOPHILS % (AUTO) 2.3 % (0-6); HEMATOCRIT 32.2 % (36.0-47.0); HEMOGLOBIN 10.4 g/dL (12.0-15.5); MEAN CORPUSCULAR HEMOGLOBIN 27.6 pg (27.0-33.4); MEAN CORPUSCULAR HGB CONC 32.4 g/dL (32.0-36.0); MEAN CORPUSCULAR VOLUME 85 fl (80-97); MONOCYTES % (AUTO) 10.8 % (3-13); PLATELET COUNT 140 10^3/uL (150-450); RED BLOOD COUNT 3.78 10^6/uL (3.72-5.28); RED CELL DISTRIBUTION WIDTH 16.2 % (11.5-14.0); SEGMENTED NEUTROPHILS % (AUTO) 46.4 % (42-78); TOTAL CELLS COUNTED % (AUTO) 100 %; WHITE BLOOD COUNT 4.3 10^3/uL (4.0-10.5)
[2018-09-09 11:58] LABS: ALANINE AMINOTRANSFERASE 31 U/L (9-52); CHOLESTEROL 164.59 mg/dL (0-200); TRIGLYCERIDES 103 mg/dL (<150)
[2018-09-09 12:09] LABS: DIRECT LDL 76 mg/dL (<100)
== END ==
LOC: OD 10:14
PROVIDERS: ATTEND Family Medicine Geriatric Medicine
DX: E78.5 Hyperlipidemia, unspecified (principal); I10 Essential (primary) hypertension; Z79.899 Other long term (current) drug therapy
CPT/HCPCS: 36415; 80061; 84460; 85025

== ENCOUNTER → 2018-11-08 | Outpatient (CLI) | payer MEDICARE, MEDICAID ==
[2018-11-08 11:29] LABS: ABSOLUTE EOSINOPHILS # (AUTO) 0.1 10^3/uL (0.0-0.6); ABSOLUTE MONOCYTES (AUTO) 0.6 10^3/uL (0.1-1.4); ABSOLUTE NEUT (AUTO) 3.2 10^3/uL (1.7-8.2); BASOPHILS % (AUTO) 0.3 % (0-2); EOSINOPHILS % (AUTO) 2.1 % (0-6); HEMATOCRIT 33.3 % (36.0-47.0); HEMOGLOBIN 10.7 g/dL (12.0-15.5); MEAN CORPUSCULAR HGB CONC 32.1 g/dL (32.0-36.0); MEAN CORPUSCULAR VOLUME 87 fl (80-97); MONOCYTES % (AUTO) 10.4 % (3-13); PLATELET COUNT 149 10^3/uL (150-450); RED BLOOD COUNT 3.81 10^6/uL (3.72-5.28); RED CELL DISTRIBUTION WIDTH 21.3 % (11.5-14.0); SEGMENTED NEUTROPHILS % (AUTO) 53.2 % (42-78); TOTAL CELLS COUNTED % (AUTO) 100 %; WHITE BLOOD COUNT 5.9 10^3/uL (4.0-10.5)
[2018-11-08 11:48] LABS: ANION GAP 7 (5-19); BLOOD UREA NITROGEN 18 mg/dL (7-20); CALCIUM 9.7 mg/dL (8.4-10.2); CARBON DIOXIDE 29 mmol/L (22-30); CHLORIDE 106 mmol/L (98-107); GLUCOSE 109 mg/dL (75-110); POTASSIUM 5.2 mmol/L (3.6-5.0)
== END ==
LOC: OD 10:15
PROVIDERS: ATTEND Family Medicine Geriatric Medicine
DX: E11.21 Type 2 diabetes mellitus with diabetic nephropathy (principal); E78.5 Hyperlipidemia, unspecified; I10 Essential (primary) hypertension; Z79.899 Other long term (current) drug therapy; C56.9 Malignant neoplasm of unspecified ovary
CPT/HCPCS: 36415; 80048; 83036; 85025

== ENCOUNTER → 2018-11-13 | Outpatient (CLI) | payer MEDICARE, MEDICAID | LOC: OD 09:13 | PROVIDERS: ATTEND Family Medicine Geriatric Medicine | DX: E87.5 Hyperkalemia (principal) | CPT/HCPCS: 36415; 84132 ==

== ENCOUNTER → 2018-11-20 | Outpatient (CLI) | payer MEDICARE, MEDICAID ==
--- NOTE | 2018-11-20 13:18 | RADIOLOGY REPORT (SQ) ---
EXAM DESCRIPTION: CT ABD/PELVIS WITH IV ORAL COMPLETED DATE/TIME: 11/20/2018 10:09 am REASON FOR STUDY: OVARIAN CA (C56.1) C56.1 MALIGNANT NEOPLASM OF RIGHT OVARY COMPARISON: PET-CT 06/21/2017 CT abdomen pelvis 01/23/2016, 11/02/2017, 04/17/2018, 08/04/2018 TECHNIQUE: CT scan of the abdomen and pelvis performed using helical scanning technique with dynamic intravenous contrast injection. No oral contrast. Images reviewed with lung, soft tissue, and bone windows. Reconstructed coronal and sagittal MPR images reviewed. Delayed images for evaluation of the urinary system also acquired. All images stored on PACS. All CT scanners at this facility use dose modulation, iterative reconstruction, and/or weight based d osing when appropriate to reduce radiation dose to as low as reasonably achievable (ALARA). [facility]: Dose Right [facility]: CareDose [facility]: Dose Right [facility]: Teradose 4D [facility]: [employer] CONTRAST TYPE AND DOSE: contrast/concentration: Isovue 350.00 mg/ml; Total Contrast Delivered: 86.0 ml; Total Saline Delivered: 69.0 ml RENAL FUNCTION: Creatinine 0.8 RADIATION DOSE: CT Rad equipment meets quality standard of care and radiation dose reduction techniq ues were employed. CTDIvol: 9.3 - 11.0 mGy. DLP: 1028 mGy-cm.. LIMITATIONS: None. FINDINGS: LOWER CHEST: Chronic scarring left posterior costophrenic sulcus unchanged from 2016 LIVER: Normal size. No masses. No dilated ducts. SPLEEN: Normal size. No focal lesions. PANCREAS: No masses. No significant calcifications. No adjacent inflammation or peripancreatic fluid collections. Pancreatic duct not dilated. GALLBLADDER: Contracted around a calcified stone at the gallbladder fundus. No pericholecystic fluid or gallbladder wall thickening ADRENAL GLANDS: No significant masses or asymmetry. RIGHT KIDNEY AND URETER: No solid masses. No significant calcifications. No hydronephrosis or hyd roureter. LEFT KIDNEY AND URETER: No solid renal masses. No significant calcifications. No hydronephrosis o r hydroureter. A left lower pole nephrostomy catheter is in good positioning. AORTA AND VESSELS: No aneurysm. No dissection. Renal arteries, SMA, celiac without stenosis. RETROPERITONEUM: No retroperitoneal adenopathy, hemorrhage or masses. BOWEL AND PERITONEAL CAVITY: No masses or inflammatory changes. No free fluid or peritoneal masses. Patient drank oral contrast. No CT evidence of bowel obstruction APPENDIX: Normal. PELVIS: A 1.6 x 1 cm nodule is present along the left external iliac vessels, either lymph node or no dule along the distal left ureter on axial image 70 (was 2.5 x 2 cm size on 08/04/2018). Post hystere ctomy. Ovaries not identified. No free fluid. Normal bladder. ABDOMINAL WALL: No masses. No hernias. BONES: No significant or acute findings. OTHER: No other significant finding. IMPRESSION: Decrease in size of nodule in the left pelvis as compared to prior CT 08/04/2018. TECHNICAL DOCUMENTATION: JOB ID: [id number] Quality ID # [id number]: Final reports with documentation of one or more dose reduction techniques (e.g., Au tomated exposure control, adjustment of the mA and/or kV according to patient size, use of iterative reconstruction technique) 2010 [employer]- All Rights Reserved Reading location - IP/workstation name: [email or web address] BY [facility]
== END ==
LOC: RAD 09:06
PROVIDERS: ATTEND Nurse Practitioner Family
DX: C56.1 Malignant neoplasm of right ovary (principal)
CPT/HCPCS: 74177

== ENCOUNTER → 2018-12-05 | Outpatient (CLI) | payer MEDICARE, MEDICAID ==
--- NOTE | 2018-12-05 09:59 | WOMENS IMAGING REPORT ---
EXAM DESCRIPTION: RETROPERITONEAL U/S COMPLETED DATE/TIME: 12/05/2018 7:33 am REASON FOR STUDY: N13.30 UNSPECIFIED HYDRONEPHROSIS N13.30 UNSPECIFIED HYDRONEPHROSIS COMPARISON: 09/09/2017 TECHNIQUE: Dynamic and static grayscale images acquired of the kidneys and bladder and recorded on P ACS. Additional selected color Doppler and spectral images recorded. LIMITATIONS: None. FINDINGS: RIGHT KIDNEY: The right kidney measures 12.3 x 4.3 x 5.3 cm, normal size. Normal echoge nicity. No solid or suspicious masses. No hydronephrosis. No calcifications. LEFT KIDNEY: The left kidney measures 10.2 x 4.7 x 4.6 cm, normal size. Normal echogenicity. Neph rostomy tube is visualized. No solid or suspicious masses. No hydronephrosis. No calcifications. BLADDER: The urinary bladder is incompletely distended. OTHER FINDINGS: Incidentally, gallstones, stable finding. IMPRESSION: 1. Left nephrostomy tube is visualized. 2. No evidence of hydronephrosis. 3. Incidentally, gallstones, unchanged finding. 4. The urinary bladder is incompletely distended. TECHNICAL DOCUMENTATION: JOB ID: [id number] [employer]- All Rights Reserved Reading location - IP/workstation name: [email or web address]
== END ==
LOC: WI 06:51
PROVIDERS: ATTEND Urology
DX: N13.30 Unspecified hydronephrosis (principal)
CPT/HCPCS: 76770

== ENCOUNTER → 2018-12-26 | Outpatient (CLI) | payer MEDICARE, MEDICAID ==
--- NOTE | 2018-12-26 09:36 | WOMENS IMAGING REPORT ---
EXAM DESCRIPTION: RETROPERITONEAL U/S COMPLETED DATE/TIME: 12/26/2018 8:14 am REASON FOR STUDY: N13.30 UNSPECIFIED HYDRONEPHROSIS N13.30 UNSPECIFIED HYDRONEPHROSIS R19.00 INTRA -ABD AND PELVIC SWELLING, MASS AND LUMP, UNSP SI COMPARISON: 12/05/2018 TECHNIQUE: Dynamic and static grayscale images acquired of the kidneys and bladder and recorded on P ACS. Additional selected color Doppler and spectral images recorded. LIMITATIONS: None. FINDINGS: RIGHT KIDNEY: The right kidney measures 11.5 cm in length. Normal echogenicity. No so lid or suspicious masses. No hydronephrosis. No calcifications. LEFT KIDNEY: The left kidney measures 10.9 cm in length. Nephrostomy tube previously described has been removed. Normal echogenicity. No solid or suspicious masses. There is very mild dilatation of the left renal pelvis. No calcifications. BLADDER: No masses. OTHER FINDINGS: Incidental note is made of gallstones. IMPRESSION: Very mild prominence of the left collecting system. Left-sided nephrostomy tube is been removed. Incidental note is made of gallstones. TECHNICAL DOCUMENTATION: JOB ID: [id number] [employer]- All Rights Reserved Reading location - IP/workstation name: [email or web address]
== END ==
LOC: WI 07:21
PROVIDERS: ATTEND Urology
DX: N13.30 Unspecified hydronephrosis (principal); K80.80 Other cholelithiasis without obstruction; R19.00 Intra-abdominal and pelvic swelling, mass and lump, unspecified site
CPT/HCPCS: 76770

== ENCOUNTER → 2019-02-01 | Outpatient (CLI) | payer MEDICARE, MEDICAID ==
--- NOTE | 2019-02-01 15:57 | RADIOLOGY REPORT (SQ) ---
EXAM DESCRIPTION: CT CHEST WITH; CT ABD/PELVIS WITH IV ONLY COMPLETED DATE/TIME: 02/01/2019 9:37 am REASON FOR STUDY: OVARIAN CA (C56.1) C56.1 MALIGNANT NEOPLASM OF RIGHT OVARY COMPARISON: PET-CT 06/21/2018 CT chest abdomen and pelvis 11/02/2017 CT abdomen and pelvis 11/25/2017, 04/17/2018, 08/04/2018, 11/20/2018 CONTRAST TYPE AND DOSE: contrast/concentration: Isovue 350.00 mg/ml; Total Contrast Delivered: 93.0 ml; Total Saline Delivered: 71.0 ml RENAL FUNCTION: Creatinine 0.9 TECHNIQUE: CT scan of the chest performed using helical scanning technique with dynamic intravenous contrast injection. Images reviewed with lung, soft tissue and bone windows. Reconstructed coronal a nd sagittal MPR images reviewed. All images stored on PACS. CT scan of the abdomen and pelvis performed with intravenous and without oral contrastusing helical s jimbo technique with dynamic intravenous contrast injection. Images reviewed with lung, soft tissu e and bone windows. Reconstructed coronal and sagittal MPR images reviewed. Delayed images for eval uation of the urinary system also acquired and evaluated. All images stored on PACS. All CT scanners at this facility use dose modulation, iterative reconstruction, and/or weight based d osing when appropriate to reduce radiation dose to as low as reasonably achievable (ALARA). [facility]: Dose Right [facility]: CareDose [facility]: Dose Right [facility]: Teradose 4D [facility]: [employer] RADIATION DOSE: CT Rad equipment meets quality standard of care and radiation dose reduction techniq ues were employed. CTDIvol: 11.0 - 12.8 mGy. DLP: 1638 mGy-cm. . LIMITATIONS: None. FINDINGS: CHEST: LUNGS AND PLEURA: Chronic scarring/ nodular pleural thickening is present in the left posterior costo phrenic sulcus unchanged from 11/02/2017 CT chest and PET-CT 06/21/2017. This was non metabolic on PET- CT 06/21/2017. Remainder of the lungs are otherwise unremarkable. No pleural effusion. No pneumothorax. HILAR AND MEDIASTINAL STRUCTURES: No identified masses or abnormal nodes. HEART AND VASCULAR STRUCTURES: No aneurysm or dissection. No central pulmonary emboli. No pericardi al effusion. HARDWARE: None. THYROID AND OTHER SOFT TISSUES: Enlarged heterogeneous thyroid unchanged. BONES: No significant finding. OTHER: No other significant finding. ABDOMEN AND PELVIS: LIVER: Normal size. No masses. No dilated ducts. SPLEEN: Normal size. No focal lesions. PANCREAS: No masses. No significant calcifications. No adjacent inflammation or peripancreatic fluid collections. Pancreatic duct not dilated. GALLBLADDER: Single massive calcified gallstone. No gallbladder wall thickening or pericholecystic f luid. ADRENAL GLANDS: No significant masses or asymmetry. RIGHT KIDNEY AND URETER: No solid masses. 5 mm right lower pole intrarenal nonobstructive stone. . No hydronephrosis or hydroureter. LEFT KIDNEY AND URETER: No solid masses. No significant calcification. No hydronephrosis or hydrouret er. Stable mild left kidney cortical thinning with old nephrostomy tract in the left retroperitoneum . 1 cm left upper pole renal cortical cyst AORTA AND VESSELS: No aneurysm. No dissection. Major visceral vessels are patent RETROPERITONEUM: No retroperitoneal adenopathy, hemorrhage or masses. BOWEL AND PERITONEAL CAVITY: No oral contrast. No masses or inflammatory changes. No free fluid or peritoneal masses. APPENDIX: Normal. ABDOMINAL WALL: No masses. No hernias. PELVIS: Post hysterectomy. No free pelvic fluid. Bladder unremarkable. Left external iliac lymph node 1.8 x 1.2 cm on axial image 74 (was 1.5 x 1 cm in size 11/20/2018). Left inguinal 2.7 x 2 x 1.7 cm lymph node axial image 88 (was 2.5 x 1.7 x 1.4 cm in size 11/20/2018). BONES: No significant or acute findings. OTHER: No other significant finding. IMPRESSION: No CT evidence of metastatic disease to the chest given history of ovarian cancer. Stab le left basilar pleural-parenchymal scarring. Increase in size of left external iliac and left inguinal lymph nodes compared to 11/20/2018 TECHNICAL DOCUMENTATION: JOB ID: [id number] Quality ID # [id number]: Final reports with documentation of one or more dose reduction techniques (e.g., Au tomated exposure control, adjustment of the mA and/or kV according to patient size, use of iterative reconstruction technique) 2010 [employer]- All Rights Reserved Reading location - IP/workstation name: [email or web address]
== END ==
LOC: RAD 08:58
PROVIDERS: ATTEND Nurse Practitioner Family
DX: C56.1 Malignant neoplasm of right ovary (principal); N20.0 Calculus of kidney
CPT/HCPCS: 71260; 74177; 82565

== ENCOUNTER → 2019-02-20 | Outpatient (CLI) | payer MEDICARE, MEDICAID ==
[2019-02-20 10:55] LABS: CHOLESTEROL 173.32 mg/dL (0-200); TRIGLYCERIDES 66 mg/dL (<150)
[2019-02-20 11:06] LABS: DIRECT LDL 79 mg/dL (<100)
[2019-02-21 14:36] LABS: CREATININE URINE 177.4 mg/dL (Not Estab.); MICROALBUMIN URINE 99.6 ug/mL (Not Estab.)
== END ==
LOC: OD 09:11
PROVIDERS: ATTEND Family Medicine Geriatric Medicine
DX: E11.9 Type 2 diabetes mellitus without complications (principal); E87.5 Hyperkalemia; Z79.899 Other long term (current) drug therapy
CPT/HCPCS: 36415; 80061; 82043; 82570; 83036; 84460

== ENCOUNTER → 2019-03-09 | Outpatient (CLI) | payer MEDICARE, MEDICAID ==
[2019-03-09 09:16] LABS: ABSOLUTE EOSINOPHILS # (AUTO) 0.1 10^3/uL (0.0-0.6); ABSOLUTE LYMPHOCYTES (AUTO) 1.8 10^3/uL (0.5-4.7); ABSOLUTE MONOCYTES (AUTO) 0.5 10^3/uL (0.1-1.4); ABSOLUTE NEUT (AUTO) 2.7 10^3/uL (1.7-8.2); BASOPHILS % (AUTO) 0.9 % (0-2); EOSINOPHILS % (AUTO) 2.1 % (0-6); HEMATOCRIT 38.6 % (36.0-47.0); HEMOGLOBIN 12.3 g/dL (12.0-15.5); LYMPHOCYTES % (AUTO) 35.5 % (13-45); MEAN CORPUSCULAR HEMOGLOBIN 27.9 pg (27.0-33.4); MEAN CORPUSCULAR HGB CONC 31.9 g/dL (32.0-36.0); MEAN CORPUSCULAR VOLUME 88 fl (80-97); MONOCYTES % (AUTO) 9.5 % (3-13); PLATELET COUNT 191 10^3/uL (150-450); RED BLOOD COUNT 4.42 10^6/uL (3.72-5.28); RED CELL DISTRIBUTION WIDTH 19.4 % (11.5-14.0); TOTAL CELLS COUNTED % (AUTO) 100 %; WHITE BLOOD COUNT 5.2 10^3/uL (4.0-10.5)
[2019-03-09 09:49] LABS: ANION GAP 12 (5-19); BLOOD UREA NITROGEN 18 mg/dL (7-20); CALCIUM 9.9 mg/dL (8.4-10.2); CARBON DIOXIDE 27 mmol/L (22-30); CHLORIDE 103 mmol/L (98-107); GLUCOSE 105 mg/dL (75-110); POTASSIUM 4.5 mmol/L (3.6-5.0)
--- NOTE | 2019-03-09 11:22 | RADIOLOGY REPORT (SQ) ---
EXAM DESCRIPTION: KNEE LEFT 4 VIEWS COMPLETED DATE/TIME: 03/09/2019 9:12 am REASON FOR STUDY: LT KNEE PAIN I10 ESSENTIAL (PRIMARY) HYPERTENSION E11.21 TYPE 2 DIABETES MELLITU S WITH DIABETIC NEPHROPATHY Z79.899 OTHER [facility] (CURRENT) DRUG THERAPY COMPARISON: None. NUMBER OF VIEWS: Four views. TECHNIQUE: AP, lateral, and both oblique radiographic images acquired of the left knee. LIMITATIONS: None. FINDINGS: MINERALIZATION: Normal. BONES: No acute fracture or dislocation. No worrisome bone lesions. JOINT: Large joint effusion. SOFT TISSUES: No soft tissue swelling. No radio-opaque foreign body. OTHER: No other significant finding. IMPRESSION: There is a large joint effusion with no acute osseous finding. TECHNICAL DOCUMENTATION: JOB ID: [id number] [employer] All Rights Reserved Reading location - IP/workstation name: [email or web address]
== END ==
LOC: OD 08:41
PROVIDERS: ATTEND Family Medicine Geriatric Medicine
DX: I10 Essential (primary) hypertension (principal); E11.21 Type 2 diabetes mellitus with diabetic nephropathy; Z79.899 Other long term (current) drug therapy
CPT/HCPCS: 36415; 80048; 85025

== ENCOUNTER 2019-04-16 14:11 | Emergency (ER) | payer MEDICARE, MEDICAID ==
--- NOTE | 2019-04-16 15:48 | ER Document Report ---
ED Medical Screen (RME) - General Chief Complaint: Low Blood Sugar Stated Complaint: ABNORMAL LABS/BLOOD SUGAR LOW Time Seen by Provider: 04/16/19 15:19 Primary Care Provider: DOUG DOSHI MD [Primary Care Provider] - Follow up as needed Notes: Patient is a 58-year-old female with a history of type 2 diabetes who presents emergency department with a chief complaint of hypoglycemia. Patient reports over the past 3 days she has had low blood sugars. Patient reports she has not started any new antibiotics but has been receiving injections in both of her knees due to severe arthritis and was recently placed on nortriptyline. Patient reports that her sugars have been ranging between the 30s and low 100s. Patient reports yesterday her sugar got as low as 37 in which she was symptomatic. Patient denies syncope or passing out. Patient reports some shortness of breath. Patient is currently receiving chemotherapy for ovarian cancer. Patient reports her last chemo therapy was 1 week ago. Patient reports she has not taken her glipizide in 2 days due to the low blood sugar. TRAVEL OUTSIDE OF THE [place] IN LAST 30 DAYS: No - Related Data Allergies/Adverse Reactions: No Known Allergies Allergy (Verified 04/16/19 15:17) Past Medical History - Social History Frequency of alcohol use: Occasional Drug Abuse: None - Past Medical History Cardiac Medical History: Reports: Hx Atrial Fibrillation, Hx Hyperc holesterolemia, Hx Hypertension Denies: Hx Coronary Artery Disease, Hx Heart Attack Pulmonary Medical History: Denies: Hx Asthma, Hx Bronchitis, Hx COPD, Hx Pneumonia Neurological Medical History: Reports: Hx Cerebrovascular Accident - 01/2016 NO DEFICITS . Denies: Hx Seizures Endocrine Medical History: Reports: Hx Diabetes Mellitus Type 2. Denies: Hx Hypothyroidism Renal/ Medical History: Denies: Hx Peritoneal Dialysis Malignancy Medical History: Reports: Hx Ovarian Cancer Musculoskeltal Medical History: Reports Hx Arthritis - RIGHT KNEE Psychiatric Medical History: Reports: Hx Depression Past Surgical History: Reports: Hx Section, Hx Gynecologic Surgery - c- section, Hx Hysterectomy, Other - Left ureter stent - Immunizations Hx Diphtheria, Pertussis, Tetanus Vaccination: Yes Physical Exam - Vital signs Vitals: Temp Pulse Resp BP Pulse Ox 98.1 F 122 H 20 144/111 H 100 04/16/19 14:31 04/16/19 14:31 04/16/19 14:31 04/16/19 14:31 04/16/19 14:31 Course - Re-evaluation Re-evalutation: 04/16/19 15:47 I have greeted and performed a rapid initial assessment of this patient. A comprehensive ED assessment and evaluation of the patient, analysis of test results and completion of the medical decision making process will be conducted by additional ED providers. - Vital Signs Vital signs: Temp Pulse Resp BP Pulse Ox 98.1 F 122 H 20 144/111 H 100 04/16/19 14:31 04/16/19 14:31 04/16/19 14:31 04/16/19 14:31 04/16/19 14:31 Doctor's Discharge - Discharge Referrals: DOUG DOSHI MD [Primary Care Provider] - Follow up as needed
[2019-04-16] MEDS ORDERED: NORMAL SALINE 1000 ML 1,000 ML IV ONE (16:29)
--- NOTE | 2019-04-16 17:28 | ER Document Report ---
ED General - General Chief Complaint: Low Blood Sugar Stated Complaint: ABNORMAL LABS/BLOOD SUGAR LOW Time Seen by Provider: 04/16/19 15:19 Primary Care Provider: DOUG DOSHI MD [ACTIVE STAFF] - Follow up as needed Notes: 58 y/o female with history of ovarian CA on chemo presents for hypoglycemia for past 3 days. Pt states it got as low as 37 over the weekend. States when her blood sugar dropped she felt "sweaty and cool." Pt also has not felt like eating due to having chemo last Tuesday. Pt is on Metformin and Glipizide. Pt states the doses of both of these were increased 4-5 months ago. States her glipizide went from 2.5 mg to 10 mg and her metformin went from 500 mg BID to 1000 mg BID. Pt states she has stopped her glipizide for the past two days. Pt's blood sugar was originally 200 upon arrival to ER. Denies any fever, abdominal pain, chest pain, dyspnea, nausea/vomiting, headache, cough. TRAVEL OUTSIDE OF THE [place] IN LAST 30 DAYS: No - Related Data Allergies/Adverse Reactions: No Known Allergies Allergy (Verified 04/16/19 15:17) Past Medical History - Social History Smoking Status: Never Smoker Frequency of alcohol use: Occasional Drug Abuse: None Family History: CVA, DM, Hypertension Patient has suicidal ideation: No Patient has homicidal ideation: No - Past Medical History Cardiac Medical History: Reports: Hx Atrial Fibrillation, Hx Hypercholesterolemia, Hx Hypertension Denies: Hx Coronary Artery Disease, Hx Heart Attack Pulmonary Medical History: Denies: Hx Asthma, Hx Bronchitis, Hx COPD, Hx Pneumonia Neurological Medical History: Reports: Hx Cerebrovascular Accident - 01/2016 NO DEFICITS . Denies: Hx Seizures Endocrine Medical History: Reports: Hx Diabetes Mellitus Type 2. Denies: Hx Hypothyroidism Renal/ Medical History: Denies: Hx Peritoneal Dialysis Malignancy Medical History: Reports: Hx Ovarian Cancer Musculoskeletal Medical History: Reports Hx Arthritis - RIGHT KNEE Psychiatric Medical History: Reports: Hx Depression Past Surgical History: Reports: Hx Section, Hx Gynecologic Surgery - c- section, Hx Hysterectomy, Other - Left ureter stent - Immunizations Hx Diphtheria, Pertussis, Tetanus Vaccination: Yes Review of Systems - Review of Systems Notes: Constitutional: Positive for feeling "sweaty and cool." HENT: Negative for sore throat. Eyes: Negative for visual changes. Cardiovascular: Negative for chest pain. Respiratory: Negative for shortness of breath. Gastrointestinal: Negative for abdominal pain, vomiting or diarrhea. Genitourinary: Negative for dysuria. Musculoskeletal: Negative for back pain. Skin: Negative for rash. Neurological: Negative for headaches, weakness or numbness. 10 point ROS negative except as marked above and in HPI. Physical Exam - Vital signs Vitals: Temp Pulse Resp BP Pulse Ox 98.1 F 122 H 20 144/111 H 100 04/16/19 14:31 04/16/19 14:31 04/16/19 14:31 04/16/19 14:31 04/16/19 14:31 - Notes Notes: GENERAL: Well-appearing, well-nourished and in no acute distress. HEAD: Atraumatic, normocephalic. EYES: Extraocular movements intact, sclera anicteric, conjunctiva are normal. NECK: Normal range of motion, supple without lymphadenopathy or JVD. LUNGS: Breath sounds clear to auscultation bilaterally and equal. No wheezes rales or rhonchi. HEART: Regular rate and rhythm without murmurs, rubs or gallops. EXTREMITIES: Normal range of motion, no pitting or edema. No clubbing or cyanosis. NEUROLOGICAL: Cranial nerves II through XII grossly intact. Normal speech, norm al gait. PSYCH: Normal mood, normal affect. SKIN: Warm, Dry, normal turgor, no rashes or lesions noted. Course - Re-evaluation Re-evalutation: 04/16/19 Nontoxic, well appearing 58 y/o female presents for intermittent hypoglycemia for 3 days. Pt is on Metformin and glipizide. Pt denies any symptoms currently but states she did feel "sweaty and cool" when her sugar did drop. Lowest over the weekend was 37. Pt also states she has not been eating due to having chemo on tuesday and states she usually has decreased appetite afterwards. Pt stopped her glipizide for the past 2 days. Pt's doses of metformin and glipizide were increased 4-5 months ago. Lungs CTA b/l. Mildly tachycardic - improved from initial presentation of 122 to 108 upon my evaluation. PE is otherwise unremarkable. Labwork initiated. Pt's blood sugar here was initially 200. 1 L NS bolus ordered. 04/16/19 Pt's UA shows UTI. Urine culture sent. Pt received Rocephin 1 gm and will be prescribed Keflex outpatient. Pt's blood sugar remained high in ER. Discussed all results with pt and given close follow up with PCP. Strict return precautions given. Pt voices understanding and agrees with plan of care. - Vital Signs Vital signs: Temp Pulse Resp BP Pulse Ox 98.2 F 122 H 20 168/110 H 99 04/16/19 19:53 04/16/19 14:31 04/16/19 17:00 04/16/19 17:00 04/16/19 17:01 - Laboratory Result Diagrams: 04/16/19 16:30 04/16/19 16:30 Laboratory results interpreted by me: 04/16/19 04/16/19 04/16/19 15:50 16:30 16:30 RDW 18.7 H BUN 22 H Est GFR (MDRD) Non-Af 55 L Glucose 185 H POC Glucose Urine Protein 100 H Urine Ketones TRACE H Urine Blood LARGE H Ur Leukocyte Esterase LARGE H 04/16/19 18:28 RDW BUN Est GFR (MDRD) Non-Af Glucose POC Glucose 218 H Urine Protein Urine Ketones Urine Blood Ur Leukocyte Esterase Discharge - Discharge Clinical Impression: Acute UTI Condition: Stable Disposition: HOME, SELF-CARE Instructions: Cephalexin ([facility]) Additional Instructions: Please take antibiotics as prescribed and finish all doses even if you feel better or if we call you to change your antibiotic based off your urine culture. Follow-up with your primary care doctor as scheduled this week. Return immediately to ER if you start having any worsening symptoms, including chest pain, shortness of breath, nausea/vomiting, abdominal pain, fever, weakness, numbness, confusion, feeling like you are going to pass out, passing out, or any other symptoms that are concerning to you. Prescriptions: Cephalexin Monohydrate [Keflex 500 mg Capsule] 500 mg PO Q6H 7 Days #28 capsule Referrals: DOUG DOSHI MD [ACTIVE STAFF] - Follow up as needed
[2019-04-16 17:30] LABS: ABSOLUTE LYMPHOCYTES (AUTO) 1.6 10^3/uL (0.5-4.7); ABSOLUTE MONOCYTES (AUTO) 0.5 10^3/uL (0.1-1.4); ABSOLUTE NEUT (AUTO) 3.2 10^3/uL (1.7-8.2); BASOPHILS % (AUTO) 0.4 % (0-2); EOSINOPHILS % (AUTO) 0.5 % (0-6); HEMATOCRIT 43.5 % (36.0-47.0); HEMOGLOBIN 14.2 g/dL (12.0-15.5); LYMPHOCYTES % (AUTO) 30.5 % (13-45); MEAN CORPUSCULAR HEMOGLOBIN 27.8 pg (27.0-33.4); MEAN CORPUSCULAR HGB CONC 32.7 g/dL (32.0-36.0); MEAN CORPUSCULAR VOLUME 85 fl (80-97); MONOCYTES % (AUTO) 8.5 % (3-13); PLATELET COUNT 244 10^3/uL (150-450); RED BLOOD COUNT 5.11 10^6/uL (3.72-5.28); RED CELL DISTRIBUTION WIDTH 18.7 % (11.5-14.0); SEGMENTED NEUTROPHILS % (AUTO) 60.1 % (42-78); TOTAL CELLS COUNTED % (AUTO) 100 %; WHITE BLOOD COUNT 5.4 10^3/uL (4.0-10.5)
[2019-04-16 17:38] VITALS: BP 168/110
[2019-04-16 17:47] LABS: ALBUMIN 4.5 g/dL (3.5-5.0); ALKALINE PHOSPHATASE 61 U/L (38-126); ANION GAP 14 (5-19); ASPARTATE AMINO TRANSFERASE 27 U/L (14-36); BILIRUBIN,DIRECT 0.3 mg/dL (0.0-0.4); BILIRUBIN,TOTAL 0.5 mg/dL (0.2-1.3); BLOOD UREA NITROGEN 22 mg/dL (7-20); CALCIUM 10.2 mg/dL (8.4-10.2); CARBON DIOXIDE 26 mmol/L (22-30); CHLORIDE 98 mmol/L (98-107); GLUCOSE 185 mg/dL (75-110); POTASSIUM 4.7 mmol/L (3.6-5.0); TOTAL PROTEIN 7.9 g/dL (6.3-8.2)
[2019-04-16 17:52] LABS: APPEARANCE,URINE CLOUDY; BILIRUBIN,URINE NEGATIVE (NEGATIVE); COLOR,URINE YELLOW; GLUCOSE, URINE NEGATIVE (NEGATIVE); KETONES,URINE TRACE mg/dL (NEGATIVE); LEUKOCYTE ESTERASE,URINE LARGE (NEGATIVE); NITRITE,URINE NEGATIVE (NEGATIVE); PROTEIN,URINE 100 mg/dL (NEGATIVE); URINE SPECIFIC GRAVITY 1.026; UROBILINOGEN,URINE NEGATIVE mg/dL (<2.0)
[2019-04-16] MEDS ORDERED: CEFTRIAXONE INJ 1000 MG VIAL IV ONE (18:18)
== END 2019-04-16 19:53 | disposition home or self-care (01) ==
LOC: ER 14:11
DX: N39.0 Urinary tract infection, site not specified (principal); E11.649 Type 2 diabetes mellitus with hypoglycemia without coma; C56.9 Malignant neoplasm of unspecified ovary; I48.91 Unspecified atrial fibrillation; E78.00 Pure hypercholesterolemia, unspecified; I10 Essential (primary) hypertension; Z79.84 Long term (current) use of oral hypoglycemic drugs; Z90.710 Acquired absence of both cervix and uterus
CPT/HCPCS: 36591; 99283; 96361; 96365; 36415; 87086; 82962; 85025; 87088; 80053; 81001; J0696; J7030; J1642

== ENCOUNTER → 2019-04-19 | Outpatient (CLI) | payer MEDICARE, MEDICAID ==
--- NOTE | 2019-04-19 10:43 | RADIOLOGY REPORT (SQ) ---
EXAM DESCRIPTION: CT CHEST WITH; CT ABD/PELVIS WITH IV ORAL COMPLETED DATE/TIME: 04/19/2019 8:41 am REASON FOR STUDY: C56.1 MALIGNANT NEOPLASM OF RIGHT OVARY C56.1 MALIGNANT NEOPLASM OF RIGHT OVARY COMPARISON: PET-CT 06/21/2017 CT abdomen pelvis 11/20/2018 CT chest abdomen pelvis 02/01/2019 CONTRAST TYPE AND DOSE: contrast/concentration: Isovue 350.00 mg/ml; Total Contrast Delivered: 88.0 ml; Total Saline Delivered: 70.0 ml RENAL FUNCTION: Creatinine 1.0 TECHNIQUE: CT scan of the chest performed using helical scanning technique with dynamic intravenous contrast injection. Images reviewed with lung, soft tissue and bone windows. Reconstructed coronal a nd sagittal MPR images reviewed. All images stored on PACS. CT scan of the abdomen and pelvis performed with intravenous and with oral contrastusing helical scan marisa technique with dynamic intravenous contrast injection. Images reviewed with lung, soft tissue a nd bone windows. Reconstructed coronal and sagittal MPR images reviewed. Delayed images for evaluat ion of the urinary system also acquired and evaluated. All images stored on PACS. All CT scanners at this facility use dose modulation, iterative reconstruction, and/or weight based d osing when appropriate to reduce radiation dose to as low as reasonably achievable (ALARA). [facility]: Dose Right [facility]: CareDose [facility]: Dose Right [facility]: Teradose 4D [facility]: [employer] RADIATION DOSE: CT Rad equipment meets quality standard of care and radiation dose reduction techniq ues were employed. CTDIvol: 9.1 - 10.6 mGy. DLP: 1329 mGy-cm. . LIMITATIONS: None. FINDINGS: CHEST: LUNGS AND PLEURA: Persistent scarring in the left posterior costophrenic sulcus unchanged from PET-CT 07/01/2017, benign. No acute infiltrates. No pulmonary nodule. No pleural effusions. No pneumothorax. HILAR AND MEDIASTINAL STRUCTURES: No identified masses or abnormal nodes. HEART AND VASCULAR STRUCTURES: No aneurysm or dissection. No central pulmonary emboli. No pericardi al effusion. HARDWARE: Left-sided permanent central line tip superior vena cava THYROID AND OTHER SOFT TISSUES: Stable thyromegaly. BONES: No significant finding. OTHER: No other significant finding. ABDOMEN AND PELVIS: LIVER: Normal size. No masses. No dilated ducts. SPLEEN: Normal size. No focal lesions. PANCREAS: No masses. No significant calcifications. No adjacent inflammation or peripancreatic fluid collections. Pancreatic duct not dilated. GALLBLADDER: Contracted around a calcified stones. No gallbladder wall thickening or pericholecystic fluid ADRENAL GLANDS: No significant masses or asymmetry. RIGHT KIDNEY AND URETER: No solid masses. No significant calcification. No hydronephrosis or hydroure ter. LEFT KIDNEY AND URETER: Since the prior studies, patient has developed massive left hydronephrosis an d hydroureter down to the pelvis where the left ureter crosses over the iliac vessels. At this point , focal scar or nodule is present measuring 1.2 x 0.9 cm on axial image 78 and coronal image 56. The re is left renal function, on delayed images there is accumulation of contrast in the left collecting system. AORTA AND VESSELS: No aneurysm. No dissection. Renal arteries, SMA, celiac without stenosis. RETROPERITONEUM: No retroperitoneal adenopathy, hemorrhage or masses. BOWEL AND PERITONEAL CAVITY: Patient drank oral contrast. No masses or inflammatory changes. No free fluid or peritoneal masses. APPENDIX: Normal. ABDOMINAL WALL: No masses. No hernias. PELVIS: Post hysterectomy. There is increasing pelvic adenopathy as follows: Right external iliac lymph node 1.9 x 1.2 cm axial image 71 (was 13 x 6 mm on 02/01/2019). Left external iliac lymph node 1.4 x 1 cm axial image 65, new compared to 02/01/2019 Left pelvic sidewall 1.6 x 1.1 cm node axial image 72 (was 1.3 x 0.7 cm) Left pelvic sidewall 2.3 x 1.3 cm node axial image 74 (was 1.8 x 1.1 cm) Left inguinal lymph node 3.3 x 1.6 cm axial image 88 (was 2 x 1.7 cm on 02/01/2019) BONES: No significant or acute findings. OTHER: No other significant finding. IMPRESSION: No CT evidence of metastatic disease to the chest New left marked hydronephrosis and hydroureter down to a left distal ureteral/ pelvic sidewall nodule . Multiple enlarging pelvic lymph nodes are present, findings are worrisome for tumor recurrence TECHNICAL DOCUMENTATION: JOB ID: [id number] Quality ID # [id number]: Final reports with documentation of one or more dose reduction techniques (e.g., Au tomated exposure control, adjustment of the mA and/or kV according to patient size, use of iterative reconstruction technique) 2010 [employer]- All Rights Reserved Reading location - IP/workstation name: [email or web address]
== END ==
LOC: RAD 08:06
PROVIDERS: ATTEND Internal Medicine Hematology & Oncology
DX: C56.1 Malignant neoplasm of right ovary (principal); N13.30 Unspecified hydronephrosis
CPT/HCPCS: 71260; 74177

== ENCOUNTER → 2019-06-02 | Outpatient (CLI) | payer MEDICARE, MEDICAID ==
[2019-06-02 11:13] LABS: CHOLESTEROL 160.12 mg/dL (0-200); TRIGLYCERIDES 95 mg/dL (<150)
[2019-06-02 11:25] LABS: DIRECT LDL 81 mg/dL (<100)
[2019-06-04 03:36] LABS: CREATININE URINE 102.2 mg/dL (Not Estab.); MICROALBUMIN URINE 114.2 ug/mL (Not Estab.)
== END ==
LOC: OD 09:23
PROVIDERS: ATTEND Family Medicine Geriatric Medicine
DX: E11.21 Type 2 diabetes mellitus with diabetic nephropathy (principal); I10 Essential (primary) hypertension; E78.5 Hyperlipidemia, unspecified; Z79.899 Other long term (current) drug therapy
CPT/HCPCS: 36415; 80061; 82043; 82570; 83036; 84460

== ENCOUNTER → 2019-07-23 | Outpatient (CLI) | payer MEDICARE, MEDICAID ==
[2019-07-23 09:21] LABS: ANION GAP 5 (5-19); ASPARTATE AMINO TRANSFERASE 47 U/L (14-36); BLOOD UREA NITROGEN 16 mg/dL (7-20); CALCIUM 9.5 mg/dL (8.4-10.2); CARBON DIOXIDE 28 mmol/L (22-30); CHLORIDE 107 mmol/L (98-107); GLUCOSE 70 mg/dL (75-110); POTASSIUM 4.7 mmol/L (3.6-5.0)
== END ==
LOC: OD 07:36
PROVIDERS: ATTEND Family Medicine Geriatric Medicine
DX: E11.21 Type 2 diabetes mellitus with diabetic nephropathy (principal); R74.0 Nonspecific elevation of levels of transaminase and lactic acid dehydrogenase [LDH]; Z79.899 Other long term (current) drug therapy
CPT/HCPCS: 36415; 80048; 84450; 84460

== ENCOUNTER → 2019-07-27 | Outpatient (CLI) | payer MEDICARE, MEDICAID ==
--- NOTE | 2019-07-27 11:12 | RADIOLOGY REPORT (SQ) ---
EXAM DESCRIPTION: CT CHEST WITH IMAGES COMPLETED DATE/TIME: 07/27/2019 9:20 am REASON FOR STUDY: C56.1 MALIGNANT NEOPLASM OF RIGHT OVARY C56.1 MALIGNANT NEOPLASM OF RIGHT OVARY COMPARISON: 04/19/2019 and 02/01/2019. TECHNIQUE: CT scan of the chest performed using helical scanning technique with dynamic intravenous contrast injection. Images reviewed with lung, soft tissue and bone windows. Reconstructed coronal and sagittal MPR and MIP images reviewed. All images stored on PACS. All CT scanners at this facility use dose modulation, iterative reconstruction, and/or weight based d osing when appropriate to reduce radiation dose to as low as reasonably achievable (ALARA). [facility]: Dose Right [facility]: CareDose [facility]: Dose Right [facility]: Teradose 4D [facility]: [employer] CONTRAST TYPE AND DOSE: 87 mL Omnipaque 350- low osmolar. RENAL FUNCTION: BUN 16 creatinine 0.97. RADIATION DOSE: . LIMITATIONS: None. FINDINGS: LUNGS AND PLEURA: Stable scarring in the left lung base. No opacities, nodules, masses. No pneumothorax. No effusions. HILAR AND MEDIASTINAL STRUCTURES: No identified masses or abnormal nodes. HEART AND VASCULAR STRUCTURES: No aneurysm or dissection. No central pulmonary emboli. No pericardi al effusion. HARDWARE: Vascular port. UPPER ABDOMEN: See separate report of the CT of the abdomen. THYROID AND OTHER SOFT TISSUES: Stable thyroid nodules. No adenopathy. BONES: No significant finding. OTHER: No other significant finding. IMPRESSION: STABLE CT OF THE CHEST WITH IV CONTRAST. STABLE SCARRING IN THE LEFT LUNG BASE. STABLE THYROID NODULES. NO EVIDENCE OF METASTATIC INVOLVEMENT IN THE CHEST. TECHNICAL DOCUMENTATION: JOB ID: [id number] Quality ID # [id number]: Final reports with documentation of one or more dose reduction techniques (e.g., Au tomated exposure control, adjustment of the mA and/or kV according to patient size, use of iterative reconstruction technique) 2010 [employer]- All Rights Reserved Reading location - IP/workstation name: [email or web address]
--- NOTE | 2019-07-27 11:32 | RADIOLOGY REPORT (SQ) ---
EXAM DESCRIPTION: CT ABD/PELVIS WITH IV ORAL IMAGES COMPLETED DATE/TIME: 07/27/2019 9:20 am REASON FOR STUDY: C56.1 MALIGNANT NEOPLASM OF RIGHT OVARY C56.1 MALIGNANT NEOPLASM OF RIGHT OVARY COMPARISON: 04/19/2019 and 11/20/2018. TECHNIQUE: CT scan of the abdomen and pelvis performed using helical scanning technique with dynamic intravenous contrast injection. No oral contrast. Images reviewed with lung, soft tissue, and bone windows. Reconstructed coronal and sagittal MPR images reviewed. Delayed images for evaluation of the urinary system also acquired. All images stored on PACS. All CT scanners at this facility use dose modulation, iterative reconstruction, and/or weight based d osing when appropriate to reduce radiation dose to as low as reasonably achievable (ALARA). [facility]: Dose Right [facility]: CareDose [facility]: Dose Right [facility]: Teradose 4D [facility]: [employer] CONTRAST TYPE AND DOSE: 87 mL Omnipaque 350- low osmolar. RENAL FUNCTION: BUN 16 creatinine 0.97. RADIATION DOSE: CT Rad equipment meets quality standard of care and radiation dose reduction techniq ues were employed. CTDIvol: 6.6 - 8.4 mGy. DLP: 1107 mGy-cm.. LIMITATIONS: None. FINDINGS: LOWER CHEST: See separate report of the CT of the chest. LIVER: Normal size. No masses. No dilated ducts. SPLEEN: Normal size. No focal lesions. PANCREAS: No masses. No significant calcifications. No adjacent inflammation or peripancreatic fluid collections. Pancreatic duct not dilated. GALLBLADDER: Gallstones. No inflammatory changes to suggest cholecystitis. ADRENAL GLANDS: No significant masses or asymmetry. RIGHT KIDNEY AND URETER: No solid masses. No significant calcifications. No hydronephrosis or hyd roureter. LEFT KIDNEY AND URETER: No solid masses. No significant calcifications. Again seen is severe hydr onephrosis and hydroureter with delayed excretion. Dilated left ureter to the level of the left gabino c vessels. AORTA AND VESSELS: No aneurysm. No dissection. Renal arteries, SMA, celiac without stenosis. RETROPERITONEUM: No retroperitoneal adenopathy, hemorrhage or masses. BOWEL AND PERITONEAL CAVITY: No masses or inflammatory changes. No free fluid or peritoneal masses. APPENDIX: Normal. PELVIS: Previously documented lymph nodes as follows: Right external iliac lymph node 1.2 x 1.6 cm, axial image 70. Prior measurement 1.9 x 1.2 cm. Left external iliac lymph node 1.2 x 1.5 cm, axial image 64. Prior measurement 1.4 x 1 cm. Left pelvic sidewall lymph node 1.2 x 1.2 cm, axial image 70. Prior measurement 1.6 x 1.1 cm. Left pelvic sidewall lymph node 0.9 x 1.4 cm, axial image 73. Prior measurement 2.3 x 1.3 cm. Left inguinal lymph node/nodes 1.4 x 2.5 cm, axial image 87. Prior measurement 3.3 x 1.6 cm. ABDOMINAL WALL: No masses. No hernias. BONES: No significant or acute findings. OTHER: No other significant finding. IMPRESSION: 1. SEVERE LEFT HYDRONEPHROSIS AND HYDROURETER, UNCHANGED FROM THE PRIOR STUDY. 2. SEVERAL PELVIC AND INGUINAL LYMPH NODES DOCUMENTED ABOVE, GENERAL IMPROVEMENT. 3. GALLSTONES. 4. NO OTHER SIGNIFICANT FINDINGS. TECHNICAL DOCUMENTATION: JOB ID: [id number] Quality ID # [id number]: Final reports with documentation of one or more dose reduction techniques (e.g., Au tomated exposure control, adjustment of the mA and/or kV according to patient size, use of iterative reconstruction technique) 2010 [employer]- All Rights Reserved Reading location - IP/workstation name: [email or web address]
== END ==
LOC: RAD 08:45
PROVIDERS: ATTEND Internal Medicine Hematology & Oncology
DX: C56.1 Malignant neoplasm of right ovary (principal); K80.80 Other cholelithiasis without obstruction; N13.30 Unspecified hydronephrosis
CPT/HCPCS: 71260; 74177

== ENCOUNTER → 2019-10-17 | Outpatient (CLI) | payer MEDICARE, MEDICAID ==
--- NOTE | 2019-10-17 13:30 | RADIOLOGY REPORT (SQ) ---
EXAM DESCRIPTION: CT ABD/PELVIS WITH IV ORAL IMAGES COMPLETED DATE/TIME: 10/17/2019 9:49 am REASON FOR STUDY: C56.1 MALIGNANT NEOPLASM OF RIGHT OVARY C56.1 MALIGNANT NEOPLASM OF RIGHT OVARY COMPARISON: 07/27/2019 TECHNIQUE: CT scan of the abdomen and pelvis performed using helical scanning technique with dynamic intravenous contrast injection. Oral contrast. Images reviewed with lung, soft tissue, and bone win dows. Reconstructed coronal and sagittal MPR images reviewed. Delayed images for evaluation of the ur inary system also acquired. All images stored on PACS. All CT scanners at this facility use dose modulation, iterative reconstruction, and/or weight based d osing when appropriate to reduce radiation dose to as low as reasonably achievable (ALARA). [facility]: Dose Right [facility]: CareDose [facility]: Dose Right [facility]: Teradose 4D [facility]: [employer] CONTRAST TYPE AND DOSE: contrast/concentration: Isovue 350.00 mmol/ml; Total Contrast Delivered: 86. 9 ml; Total Saline Delivered: 37.0 ml RENAL FUNCTION: BUN 16 creatinine 0.97 RADIATION DOSE: CT Rad equipment meets quality standard of care and radiation dose reduction techniq ues were employed. CTDIvol: 8.6 - 12.2 mGy. DLP: 1141 mGy-cm.. LIMITATIONS: None. FINDINGS: LOWER CHEST: Pleural/parenchymal scarring in the left base. LIVER: Normal size. No masses. No dilated ducts. SPLEEN: Normal size. No focal lesions. PANCREAS: No masses. No significant calcifications. No adjacent inflammation or peripancreatic fluid collections. Pancreatic duct not dilated. GALLBLADDER: Large gallstone. ADRENAL GLANDS: No significant masses or asymmetry. RIGHT KIDNEY AND URETER: No solid masses. No significant calcifications. No hydronephrosis or hyd roureter. LEFT KIDNEY AND URETER: No solid masses. Percutaneous nephrostomy tube. No significant calcificatio ns. No hydronephrosis or hydroureter. AORTA AND VESSELS: No aneurysm. No dissection. Renal arteries, SMA, celiac without stenosis. RETROPERITONEUM: No retroperitoneal adenopathy, hemorrhage or masses. BOWEL AND PERITONEAL CAVITY: No masses or inflammatory changes. No free fluid or peritoneal masses. APPENDIX: Normal. PELVIS: Normal bladder. No free fluid. No pelvic mass. Pelvic adenopathy is relatively stable. Ex amples: Right external iliac node is seen on image 70 series 3 measures 17.1 by 12.3 mm compared to 12 x 16 mm on the prior study. The larger of the left inguinal nodes measures 15.6 mm compared to 15 .4 mm on the prior study. ABDOMINAL WALL: No masses. No hernias. BONES: No significant findings. OTHER: No other significant finding. IMPRESSION: 1. Large gallstone. 2. Pelvic lymph nodes are relatively stable. 3. There is now a left percutaneous nephrostomy tube. TECHNICAL DOCUMENTATION: JOB ID: [id number] Quality ID # [id number]: Final reports with documentation of one or more dose reduction techniques (e.g., Au tomated exposure control, adjustment of the mA and/or kV according to patient size, use of iterative reconstruction technique) 2010 [employer]- All Rights Reserved Reading location - IP/workstation name: [email or web address]
== END ==
LOC: RAD 08:50
PROVIDERS: ATTEND Internal Medicine Hematology & Oncology
DX: C56.1 Malignant neoplasm of right ovary (principal); K80.80 Other cholelithiasis without obstruction
CPT/HCPCS: 74177; 82565

== ENCOUNTER 2019-11-07 11:14 | Emergency (ER) | payer MEDICARE, MEDICAID ==
--- NOTE | 2019-11-07 12:48 | RADIOLOGY REPORT (SQ) ---
EXAM DESCRIPTION: CHEST 2 VIEWS IMAGES COMPLETED DATE/TIME: 11/07/2019 12:36 pm REASON FOR STUDY: cardiac COMPARISON: 01/29/2014 EXAM PARAMETERS: NUMBER OF VIEWS: two views TECHNIQUE: Digital Frontal and Lateral radiographic views of the chest acquired. RADIATION DOSE: NA LIMITATIONS: none FINDINGS: LUNGS AND PLEURA: No opacities, masses or pneumothorax. No pleural effusion. MEDIASTINUM AND HILAR STRUCTURES: No masses or contour abnormalities. HEART AND VASCULAR STRUCTURES: Heart normal size. No evidence for failure. BONES: No acute findings. HARDWARE: [id number] is in place. OTHER: No other significant finding. IMPRESSION: NO ACUTE RADIOGRAPHIC FINDING IN THE CHEST. TECHNICAL DOCUMENTATION: JOB ID: [id number] 2010 [employer]- All Rights Reserved Reading location - IP/workstation name: [email or web address]
[2019-11-07 13:02] LABS: ABSOLUTE BASOPHILS # (AUTO) 0.1 10^3/uL (0.0-0.2); ABSOLUTE LYMPHOCYTES (AUTO) 1.5 10^3/uL (0.5-4.7); ABSOLUTE NEUT (AUTO) 7.2 10^3/uL (1.7-8.2); BASOPHILS % (AUTO) 1.2 % (0-2); EOSINOPHILS % (AUTO) 0.1 % (0-6); HEMATOCRIT 46.4 % (36.0-47.0); HEMOGLOBIN 15.2 g/dL (12.0-15.5); LYMPHOCYTES % (AUTO) 15.6 % (13-45); MEAN CORPUSCULAR HEMOGLOBIN 29.4 pg (27.0-33.4); MEAN CORPUSCULAR HGB CONC 32.8 g/dL (32.0-36.0); MEAN CORPUSCULAR VOLUME 90 fl (80-97); MONOCYTES % (AUTO) 10.4 % (3-13); PLATELET COUNT 250 10^3/uL (150-450); RED BLOOD COUNT 5.17 10^6/uL (3.72-5.28); RED CELL DISTRIBUTION WIDTH 20.7 % (11.5-14.0); SEGMENTED NEUTROPHILS % (AUTO) 72.7 % (42-78); TOTAL CELLS COUNTED % (AUTO) 100 %; WHITE BLOOD COUNT 9.9 10^3/uL (4.0-10.5)
[2019-11-07 13:10] LABS: INTERNATIONAL RATION (INR) 1.01; PROTHROMBIN TIME 13.5 SEC (11.4-15.4)
[2019-11-07 13:21] LABS: ALBUMIN 4.9 g/dL (3.5-5.0); ALKALINE PHOSPHATASE 67 U/L (38-126); ANION GAP 17 (5-19); ASPARTATE AMINO TRANSFERASE 31 U/L (14-36); BILIRUBIN,DIRECT 0.4 mg/dL (0.0-0.4); BILIRUBIN,TOTAL 0.6 mg/dL (0.2-1.3); BLOOD UREA NITROGEN 36 mg/dL (7-20); CALCIUM 10.5 mg/dL (8.4-10.2); CARBON DIOXIDE 27 mmol/L (22-30); CHLORIDE 97 mmol/L (98-107); CREATINE KINASE 272 U/L (30-135); GLUCOSE 193 mg/dL (75-110); POTASSIUM 4.3 mmol/L (3.6-5.0); TOTAL PROTEIN 8.1 g/dL (6.3-8.2)
[2019-11-07 13:31] LABS: CREATINE KINASE MB 3.54 ng/mL (<4.55)
--- NOTE | 2019-11-07 13:35 | RADIOLOGY REPORT (SQ) ---
EXAM DESCRIPTION: CT HEAD WITHOUT IMAGES COMPLETED DATE/TIME: 11/07/2019 1:27 pm REASON FOR STUDY: Dysarthria with dysphasia COMPARISON: None. TECHNIQUE: Axial images acquired through the brain without intravenous contrast. Images reviewed wi th bone, brain and subdural windows. Additional sagittal and coronal reconstructions were generated. Images stored on PACS. All CT scanners at this facility use dose modulation, iterative reconstruction, and/or weight based d osing when appropriate to reduce radiation dose to as low as reasonably achievable (ALARA). [facility]: Dose Right [facility]: CareDose [facility]: Dose Right [facility]: Teradose 4D [facility]: [employer] RADIATION DOSE: CT Rad equipment meets quality standard of care and radiation dose reduction techniq ues were employed. CTDIvol: 53.2 mGy. DLP: 991 mGy-cm. mGy. LIMITATIONS: None. FINDINGS: VENTRICLES: Normal in size and configuration for the patient's age. CEREBRUM: No masses. No hemorrhage. No midline shift. Areas of low density in the white matter mos t likely due to chronic micro-vascular ischemic change. No evidence for acute infarction. Physiolog ic calcification in both basal ganglia. CEREBELLUM: No masses. No hemorrhage. No alteration of density. No evidence for acute infarction. EXTRAAXIAL SPACES: Mild age-related involutional change. No fluid collections. No masses. ORBITS AND GLOBE: No intra- or extraconal masses. Normal contour of globe without masses. CALVARIUM: No fracture. PARANASAL SINUSES: No fluid or mucosal thickening. SOFT TISSUES: No mass or hematoma. OTHER: No other significant finding. IMPRESSION: MILD CHRONIC CHANGES OF ATROPHY AND MICROVASCULAR ISCHEMIA. NO ACUTE PROCESS. EVIDENCE OF ACUTE STROKE: NO. TECHNICAL DOCUMENTATION: JOB ID: [id number] Quality ID # [id number]: Final reports with documentation of one or more dose reduction techniques (e.g., Au tomated exposure control, adjustment of the mA and/or kV according to patient size, use of iterative reconstruction technique) 2010 [employer]- All Rights Reserved Reading location - IP/workstation name: [email or web address]
[2019-11-07 13:40] LABS: TROPONIN I 0.051 ng/mL
--- NOTE | 2019-11-07 13:46 | ER Document Report ---
Entered by ANICETO BOX SCRIBE 11/07/19 [id number] Acting as scribe for:KALPESH OCHOA MD ED General - General Chief Complaint: Trouble Talking Stated Complaint: ALTERED MENTAL STATUS Time Seen by Provider: 11/07/19 12:54 Primary Care Provider: MARLENY SAENZ MD [NO LOCAL MD] - Follow up as needed Mode of Arrival: Medic Information source: Patient, Relative - Notes: This 59 year old female patient with a history significant for ovarian cancer currently undergoing treatment, A fib on Eliquis, type 2 diabetes, and CVA in 2013 who was brought in by EMS presents to the ED today with complaints of difficulty speaking. states that the patient was at the oncology office on 11/02 and he noticed that the patient had difficulty speaking, seemed confused, and was unable to understand his questions. Patient states that is is difficult for her to say what she is thinking and her speech seems unclear. Later history I learned the patient has a left-sided nephrostomy tube that has been in for quite some time. She periodically requests to have the tube removed so her optical worker tries clamping the tube to see how well she tolerates it. She rarely tolerates it for any length of time and has to unclamp it. Most recently it was clamped probably on Tuesday, and within a few hours she began having discomfort so she unclamped it. She was given a clean bag to attached to the nephrostomy tube in case she did decide to unclamp it. Her symptoms did start 2 days prior to clamping the tube so they are probably not related. TRAVEL OUTSIDE OF THE [place] IN LAST 30 DAYS: No - Related Data Allergies/Adverse Reactions: No Known Allergies Allergy (Verified 11/07/19 11:28) Home Medications: glipzide, ezetimibe, metformin, lisinipril, omeprazole Past Medical History - General Information source: Patient, [facility] Records - Social History Smoking Status: Never Smoker Cigarette use (# per day): No Chew tobacco use (# tins/day): No Smoking Education Provided: No Frequency of alcohol use: Rare Drug Abuse: None Lives with: Spouse/Significant other Family History: Reviewed & Not Pertinent, CVA, DM, Hypertension Patient has suicidal ideation: No Patient has homicidal ideation: No - Past Medical History Cardiac Medical History: Reports: Hx Atrial Fibrillation, Hx Hy percholesterolemia, Hx Hypertension Neurological Medical History: Reports: Hx Cerebrovascular Accident - 01/2016 NO DEFICITS Endocrine Medical History: Reports: Hx Diabetes Mellitus Type 2 Malignancy Medical History: Reports: Hx Ovarian Cancer Musculoskeletal Medical History: Reports Hx Arthritis - RIGHT KNEE Psychiatric Medical History: Reports: Hx Depression Past Surgical History: Reports: Hx Section, Hx Hysterectomy, Hx Kidney (Renal Surgery) - nephrostomy tube left, Hx Urinary Tract Surgery - Left ureter stent - Immunizations Hx Diphtheria, Pertussis, Tetanus Vaccination: Yes Review of Systems - Review of Systems Constitutional: No symptoms reported EENT: No symptoms reported Cardiovascular: No symptoms reported Respiratory: No symptoms reported Gastrointestinal: No symptoms reported Genitourinary: No symptoms reported Female Genitourinary: No symptoms reported Musculoskeletal: No symptoms reported Skin: No symptoms reported Hematologic/Lymphatic: No symptoms reported Neurological/Psychological: See HPI, Confusion, Speech impairment -: Yes All other systems reviewed and negative Physical Exam - Vital signs Vitals: Temp Pulse Resp BP Pulse Ox 97.6 F 118 H 16 156/97 H 100 11/07/19 11:15 11/07/19 11:15 11/07/19 11:15 11/07/19 11:15 11/07/19 11:15 - General General appearance: Alert In distress: None - HEENT Head: Normocephalic, Atraumatic Eyes: Normal Pupils: PERRL - Respiratory Respiratory status: No respiratory distress - Cardiovascular Rhythm: Regular Heart sounds: Normal auscultation Murmur: No Friction rub: No Gallop: None auscultated - Abdominal Inspection: Normal Distension: No distension Bowel sounds: Normal Tenderness: Nontender - Abdomen soft Organomegaly: No organomegaly - Back Back: Normal, Nontender, Other - Nephrostomy tube, left side. The urine is draining into a bag, and the urine does not look cloudy. - Extremities General upper extremity: Normal inspection General lower extremity: Normal inspection. No: Edema - Neurological Neuro grossly intact: Yes Cognition: Normal Orientation: AAOx4 [place] Coma Scale Eye Opening: Spontaneous [place] Coma Scale Verbal: Oriented [place] Coma Scale Motor: Obeys Commands Jeannie Coma Scale Total: 15 Speech: Normal Cranial nerves: Tongue deviation - Slight deviation to the right. No: Facial palsy Motor strength normal: LUE, RUE, LLE, RLE Additional motor exam normals: Equal development analyst. No: Pronator drift, Weakness - Psychological Associated symptoms: Normal affect, Normal mood - Skin Skin Temperature: Warm Skin Moisture: Dry Skin Color: Normal Course - Re-evaluation Re-evalutation: 11/07/19 18:34 A clean-catch urine NA nephrostomy tube urine will be sent for culture. Antibiotic therapy will be withheld until culture results come back. 11/07/19 19:24 The urinalysis came back after the patient left. It shows a significant urinary tract infection from the bladder. The urine from the nephrostomy tube is not pa rticularly worrisome. I did contact the patient's spouse and informed him and transmitted the prescription for cephalexin to their pharmacy of choice. 11/07/19 19:29 The patient was evaluated during the global COVID-19 pandemic and that diagnosis was suspected/considered upon their initial presentation. Their evaluation, treatment and testing was consistent with current guidelines for patients who present with complaints or symptoms that may be related to COVID-19. - Vital Signs Vital signs: Temp Pulse Resp BP Pulse Ox 97.6 F 108 H 24 H 140/114 H 99 11/07/19 11:15 11/07/19 17:00 11/07/19 18:30 11/07/19 18:47 11/07/19 18:47 - Laboratory Result Diagrams: 11/07/19 12:43 11/07/19 12:43 Laboratory results interpreted by me: 11/07/19 11/07/19 11/07/19 12:43 12:43 12:43 RDW 20.7 H Chloride 97 L BUN 36 H Est GFR ( Amer) 58 L Est GFR (MDRD) Non-Af 48 L Glucose 193 H Calcium 10.5 H Creatine Kinase 272 H Urine Protein >=500 H Urine Glucose (UA) 50 H Urine Blood LARGE H Ur Leukocyte Esterase MODERATE H 11/07/19 18:28 RDW Chloride BUN Est GFR ( Amer) Est GFR (MDRD) Non-Af Glucose Calcium Creatine Kinase Urine Protein >=500 H Urine Glucose (UA) 50 H Urine Blood MODERATE H Ur Leukocyte Esterase TRACE H - Diagnostic Test Radiology reviewed: Image reviewed, Reports reviewed - MRI is negative for acute or subacute infarction. There is chronic microvascular ischemic changes. CT scan does not show acute process. 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 The difficulty you have had finding the words to express herself recently may be due to a transient ischemic attack and is improving, or may be a late effect of prior stroke. You are presently on Eliquis, so additional anticoagulants would probably not be helpful. Your urine is going to be cultured in case urine infection might be contributing to your symptoms. Follow-up with your primary care provider if your speech and ability to concentrate do not improve. RETURN TO THE EMERGENCY ROOM IF ANY NEW OR WORSENING SYMPTOMS. Prescriptions: Cephalexin Monohydrate [Keflex 500 mg Capsule] 500 mg PO TID #21 capsule Referrals: MARLENY SAENZ MD [NO LOCAL MD] - Follow up as needed ED NIH Stroke Scale - NIH Stroke Scale *: 1. NIH scale should be completed with appropriate accompanying assessment tools. *: 2. The NIH should reflect what the patient is capable of doing and should not be coached by the clinician. 1a. Level of Consciousness: 0=Alert;keenly responsive -: 1=Drowsy -: 2=Obtunded -: 3=Coma/unresponsive or reflex to noxious stimuli. 1a. Responses: 0 1b. Orientation Questions: a. What month is it? -: b. How old are you? -: 0=Answers both questions correctly. -: 1=Answers one question correctly or patient is intubated or has orotracheal trauma. -: 2=Answers neither question correctly. 1b. Responses: 0 1c. Response to commands: a. Open and close eyes? -: b. Quill Machine Tender and release hand? -: Credit is given despite weakness. Demonstration of task is permitted. Substitute command if hands cannot be used. -: 0=Performs both tasks correctly -: 1=Performs one task correctly -: 2=Performs neither task correctly 1c. Responses: 0 2. Gaze: Establish eye contact and instruct patient to "Follow my finger" -: 0=Normal -: 1=Partial gaze palsy. Gaze is abnormal in one or both eyes, but where forced deviation or total gaze paresis is not present. -: 2=Forced deviation or total gaze paresis. 2. Responses: 0 3. Visual Cook: Sees fingers in all four quadrants. -: 0=No visual loss. -: 1=Partial hemianopsia. -: 2=Complete hemianopsia. -: 3=Bilateral hemianopsia (including Cortical blindness) 3. Responses: 0 4. Facial Movement: Instruct patient to: -: a. Show me your teeth -: b. Raise your eyebrows -: c. Close your eyes -: d. Smile -: 0=Normal symmetrical movement -: 1=Minor paralysis (flattened nasolabial fold, asymmetry on smiling). -: 2=Partial paralysis (total or near total paralysis of lower face). -: 3=Complete paralysis of upper and lower face 4. Responses: 0 5. Motor functions (left arm): Alternate sides and extend each arm with palms down (90 degrees if sitting or 45 degrees for supine). -: 0=No drift;limb holds for full 10 seconds. -: 1=Drift; limb holds but drifts down before full 10 seconds, but does not hit bed. -: 2=Some effort against gravity; limb cannot get to or maintain position. -: 3=No effort against gravity; limb falls. -: 4=No movement. -: UN=Amputation, joint fusion, explain in comments. 5. Responses (left arm): 0 5. Motor Functions (right arm): Alternate sides and extend each arm with palms down (90 degrees if sitting or 45 degrees for supine). -: 0=No drift;limb holds for full 10 seconds. -: 1=Drift; limb holds but drifts down before full 10 seconds, but does not hit bed. -: 2=Some effort against gravity; limb cannot get to or maintain position. -: 3=No effort against gravity; limb falls. -: 4=No movement. -: UN=Amputation, joint fusion, explain in comments. 5. Responses (right arm): 0 6. Motor Functions (left leg): With patient lying supine, alternate sides and extend each leg (30 degrees always while supine). -: 0=No drift, leg holds position for full 5 seconds -: 1=Drift; leg falls before full 5 seconds but does not hit bed. -: 2=Some effort against gravity, leg falls to bed but some effort against gravity. -: 3=No effort against gravity, leg falls to bed immediately. -: 4=No movement. -: UN=Amputation, joint fusion; explain in comments. 6. Responses (left leg): 0 6. Motor Functions (right leg): With patient lying supine, alternate sides and extend each leg (30 degrees always while supine). -: 0=No drift, leg holds position for full 5 seconds -: 1=Drift; leg falls before full 5 seconds but does not hit bed. -: 2=Some effort against gravity, leg falls to bed but some effort against gravity. -: 3=No effort against gravity, leg falls to bed immediately. -: 4=No movement. -: UN=Amputation, joint fusion; explain in comments. 6. Responses (right leg): 0 7. Limb Ataxia: With eyes open instruct patient to: -: a. "Touch your finger to your nose". -: b. "Touch your heel to your xiong" -: 0=Absent -: 1=Present in one limb. -: 2=Present in two limbs. -: UN=Amputation or joint fusion; explain in comments. 7. Responses: 0 8. Sensory: Test sensation using pinprick or noxious stimuli. Test as many body parts as possible. -: 0=Normal;no sensory loss -: 1=Mile to moderate sensory loss (patient feels pin prick but is less sharp on affected side). -: 2=Severe or total sensory loss. 8. Responses: 0 9. Best Language: Instruct patient to: -: a. "Describe what you see in this picture." -: b. "Name the items in this picture." -: c. "Read these sentences." -: 0=No aphasia, normal -: 1=Mild to moderate aphasia. -: 2=Severe aphasia -: 3=Mute, global aphasia, no usable speech or auditory comprehension. 9. Responses: 0 10. Articulation, Dysarthia: Instruct patient to: -: "Read these words" or "Repeat these words" -: 0=Normal -: 1=Mild to moderate; patient may slur some words but can be understood without difficulty. -: 2=Severe; patients speech so slurred as to be unintelligible in the absence of dysphasia. -: UN=Intubated or other physical barrier, explain in comments. 10. Responses: 0 11. Extinction or inattention: 0=No abnormality -: 1= Visual, tactile, auditory, spatial, or personal inattention or extinction to bilateral simulation in one or the sensory modalities. -: 2=Profound sedrick-inattention or sedrick-inattention to more than one modality; does not recognize own hand. 11. Responses: 0 Total Score: 0 ED Alteplase Inc/Exc Criteria - Inclusion Criteria: 1: Patient presented to ED within 3 hours of acute ischemic stroke symptom onset? -: No 2: Did baseline CT exclude intracranial hemorrhage and/or other risk factors? 3: Is the age of the patient 18 years of age or greater? : If any of the above questions are answered "NO" then stop, patient is not a candidate for Alteplase, : If all of the above questions are answered "YES" then continue with Exclusion Criteria. - Exclusion Criteria: 1: Is there evidence of intracranial hemorrhage on baseline CT? 2: Is there suspicion of subarachnoid hemorrhage (even if CT negative)? 3: Is there a history of serious head trauma, recent previous stroke or AZ within 3 months? 4: Does the patient have a clinical presentation consistent with AZ or post-AZ pericarditis? 5: Is there history of intracranial hemorrhage? 6: On repeated measurement is Systolic BP greater than 185mmHg or Diastolic BP greater that 110 mmHg and is aggressive treatment needed to reduce blood p ressure to these limits (e.g. constant infusion of an anti-hypertensive)? 7: Did the patient awake with stroke symptoms? 8: Has the patient had a lumbar puncture or an arterial puncture at a non- compressile site within 7 days? 9: With in the last 14 days did the patient have surgery or major trauma? 10: Is the patient or less than 2 weeks? 11: Was there any active bleeding or acute trauma? 12: Does the patient have intracranial neoplasm, arteriovenous malformation or aneurysm? 13: Does the patient have abnormal glucose (less than 50 or greater than 400mg/dl)? Record glucose in Comment. 14: Patient has rapidly improving symptoms at the time Alteplase is to be Administered. 15: Does the patient have any risks for bleeding, including but not limited to: a.: Current use of Coumadin with PT greater than 15 seconds or INR greater than 1.7. b.: Current use of Pradaxa (Dabigatran). c.: Heparin administereed within the past 48 hours and PTT elevated. d.: Platelet count less than 100,000/mm. e.: Major surgery or serious trauma within 14 days. f.: Gastrointestinal or gynecological urinary bleeding within 14 days. g.: Myocardial Infarction (AZ) within 3 months. : If the answer to any of the above questions is "YES" then stop, the patient is not a candidate for Alteplase. : If the answer to all of the above questions is "NO" then the patient may be eligible for the Administration of Alteplase. : If the patient is noted to have seizure activity at onset of Stroke symptoms; Consult Neurologist for further evaluation. - The patient is: -: Included and is eligible to receive Alteplase. *Initiate bed placement at higher level of care* Reviewed risks & benefits of thrombolytic therapy: I have reviewed the risks and benefits of thrombolytic therapy with the patient and/or his/her family. -: Excluded and not eligible to receive Alteplase for the above exclusions. -: Excluded and not eligible to receive Alteplase for other reasons (specify in comments): - Diagnosis of TIA: -: Patient presented with transient symptoms that are now resolved and no other neurologic findings are currently present. List symptoms in comments. -: Patient is NOT a candidate for tPA. -: ____(put name in comment) has been consulted for admission and continued evaluation of risk factor assessment. I personally performed the services described in the documentation, reviewed and edited the documentation which was dictated to the scribe in my presence, and it accurately records my words and actions.
--- NOTE | 2019-11-07 14:46 | EKG REPORT ---
SEVERITY:- BORDERLINE ECG - SINUS TACHYCARDIA BORDERLINE T ABNORMALITIES, ANTERIOR LEADS : Confirmed by: Reina Abdalla MD 07-Nov-2019 14:45:15
--- NOTE | 2019-11-07 17:36 | RADIOLOGY REPORT (SQ) ---
EXAM DESCRIPTION: MRI HEAD WITHOUT IMAGES COMPLETED DATE/TIME: 11/07/2019 5:21 pm REASON FOR STUDY: A. fib, prior CVA, new dysphasia COMPARISON: 2014 TECHNIQUE: Multiplanar imaging includes non-contrasted T1, T2, FLAIR, and diffusion with ADC map seq uences. Images stored on PACS. LIMITATIONS: None. FINDINGS: ANATOMY: No anomalies. Normal vascular flow voids. Pituitary fossa normal. CSF SPACES: Normal in size and contour. No hemorrhage. CEREBRUM: Sulci and gyri normal in size and contour. There are some small old lacunar infarctions. There are areas of increased white matter signal on FLAIR imaging. No evidence of hemorrhage, mass, or extraaxial fluid collection. POSTERIOR FOSSA: No signal alteration. No hemorrhage. No edema, masses or mass effect. Internal marichuy tory canals, cerebello-pontine angles, mastoids normal. DIFFUSION IMAGING: Negative for acute or sub-acute infarction. ORBITS: No masses. Globes normal. PARANASAL SINUSES: No fluid levels. Mucosa normal. OTHER: No other significant finding. IMPRESSION: Mild chronic microvascular ischemia. No acute intracranial imaging findings. EVIDENCE OF ACUTE STROKE: NO. TECHNICAL DOCUMENTATION: JOB ID: [id number] [employer]- All Rights Reserved Reading location - IP/workstation name: [email or web address]
[2019-11-07 18:51] VITALS: BP 140/114
[2019-11-07 19:05] LABS: APPEARANCE,URINE TURBID; BILIRUBIN,URINE NEGATIVE (NEGATIVE); COLOR,URINE AMBER; GLUCOSE, URINE 50 mg/dL (NEGATIVE); KETONES,URINE NEGATIVE (NEGATIVE); LEUKOCYTE ESTERASE,URINE MODERATE (NEGATIVE); NITRITE,URINE NEGATIVE (NEGATIVE); PROTEIN,URINE >=500 mg/dL (NEGATIVE); URINE SPECIFIC GRAVITY 1.032; UROBILINOGEN,URINE NEGATIVE mg/dL (<2.0)
[2019-11-07 19:06] LABS: APPEARANCE,URINE CLOUDY; BILIRUBIN,URINE NEGATIVE (NEGATIVE); COLOR,URINE YELLOW; GLUCOSE, URINE 50 mg/dL (NEGATIVE); KETONES,URINE NEGATIVE (NEGATIVE); LEUKOCYTE ESTERASE,URINE TRACE (NEGATIVE); NITRITE,URINE NEGATIVE (NEGATIVE); PROTEIN,URINE >=500 mg/dL (NEGATIVE); URINE SPECIFIC GRAVITY 1.029; UROBILINOGEN,URINE NEGATIVE mg/dL (<2.0)
== END 2019-11-07 18:51 | disposition home or self-care (01) ==
LOC: ER 11:14
DX: I69.322 Dysarthria following cerebral infarction (principal); I69.359 Hemiplegia and hemiparesis following cerebral infarction affecting unspecified side; N30.01 Acute cystitis with hematuria; R41.82 Altered mental status, unspecified; R47.9 Unspecified speech disturbances; C56.9 Malignant neoplasm of unspecified ovary; I48.91 Unspecified atrial fibrillation; E11.9 Type 2 diabetes mellitus without complications; Z79.01 Long term (current) use of anticoagulants; Z93.6 Other artificial openings of urinary tract status
CPT/HCPCS: 36415; 70450; 70551; 71046; 80053; 81001; 82550; 82553; 84484; 85025; 85610; 87086; 93005; 93010; 99285

== ENCOUNTER 2020-01-19 12:25 | Emergency (ER) | payer MEDICARE, MEDICAID ==
[2020-01-19] MEDS ORDERED: MORPHINE SULFATE 10 MG/ML INJ IV ONE ×2 (13:14→15:36)
--- NOTE | 2020-01-19 13:18 | ER Document Report ---
ED General - General Stated Complaint: CATHETER PROBLEM Time Seen by Provider: 01/19/20 12:39 Primary Care Provider: MATTHEW MARION MD [Primary Care Provider] - Follow up as needed Notes: HPI: Patient is a 59-year-old female that presents today secondary to her left nephrostomy tube falling out. I did speak to the patient who is a poor his bi. I then called the patient's oncologist. Patient has ovarian cancer with some adenopathy that is blocking the left ureter. Nephrostomy tube was placed at [facility] by Dr. Estrella. Supposedly the left kidney is unable to drain otherwise in this nephrostomy tube is a chronic needed catheter. Patient states some mild abdominal pain to the suprapubic and periumbilical region which she states is unchanged from baseline. She still makes urine normally. She denies any fevers, vomiting, chest pain, or diarrhea. Patient has not taken her medicines today. ROS: See HPI All other review of systems reviewed and otherwise negative Reviewed vital signs and nursing note as charted by RN. PHYSICAL EXAM: CONSTITUTIONAL: Alert and oriented and responds appropriately to questions. Well -appearing; well-nourished HEAD: Normocephalic; atraumatic EYES: PERRL; Conjunctivae clear, sclerae non-icteric CARD: Regular rate and rhythm; no murmurs; symmetric distal pulses RESP: Normal chest excursion without splinting or tachypnea; breath sounds clear and equal bilaterally; no wheezes, no rhonchi, no rales ABD/GI: Normal bowel sounds; non-distended; soft, mildly tender to the suprapub ic periumbilical region with no palpable masses, rebound or guarding. Old midline surgical scar inferior to the umbilicus. BACK: The back appears normal and is non-tender to palpation along the midline spine. Left nephrostomy tube insertion site with no discharge, swelling, or erythema EXT: Normal ROM in all joints; non-tender to palpation; no edema SKIN: No acute lesions noted NEURO: CN 2-12 intact; 5/5 bilateral upper and lower extremity strength with sensation intact to light touch PSYCH: The patient's mood and manner are appropriate. Grooming and personal hygiene are appropriate. TRAVEL OUTSIDE OF THE [place] IN LAST 30 DAYS: No - Related Data Allergies/Adverse Reactions: No Known Allergies Allergy (Verified 11/07/19 11:28) Past Medical History - Social History Smoking Status: Unknown if Ever Smoked Family History: Reviewed & Not Pertinent, CVA, DM, Hypertension - Past Medical History Cardiac Medical History: Reports: Hx Atrial Fibrillation, Hx Hypercholesterolemia, Hx Hypertension Denies: Hx Coronary Artery Disease, Hx Heart Attack Pulmonary Medical History: Denies: Hx Asthma, Hx Bronchitis, Hx COPD, Hx Pneumonia Neurological Medical History: Reports: Hx Cerebrovascular Accident - 01/2016 NO DEFICITS . Denies: Hx Seizures Endocrine Medical History: Reports: Hx Diabetes Mellitus Type 2. Denies: Hx Hypothyroidism Renal/ Medical History: Denies: Hx Peritoneal Dialysis Malignancy Medical History: Reports: Hx Ovarian Cancer Musculoskeletal Medical History: Reports Hx Arthritis - RIGHT KNEE Psychiatric Medical History: Reports: Hx Depression Past Surgical History: Reports: Hx Section, Hx Gynecologic Surgery - c- section, Hx Hysterectomy, Hx Kidney (Renal Surgery) - nephrostomy tube left, Hx Urinary Tract Surgery - Left ureter stent, Other - Left ureter stent - Immunizations Hx Diphtheria, Pertussis, Tetanus Vaccination: Yes Physical Exam - Vital signs Vitals: Temp Pulse Resp BP Pulse Ox 97.5 F 64 19 181/137 H 98 01/19/20 12:29 01/19/20 12:29 01/19/20 12:29 01/19/20 12:29 01/19/20 12:29 Course - Re-evaluation Re-evalutation: Given the above history and physical, I did call the patient's oncologist. He gave me the phone number to the patient's urologist directly. This is Dr. Antoni Chamberlain at [phone]. I would like to evaluate the patient's electrolytes and the patient's creatinine. I do believe that the patient will require transfer. I did call our general surgeon as well as her radiologist and we have no interventional radiology and her surgeon is unable to place a nephrostomy tube. 01/19/20 13:30 Patient's heart rate is currently 192. She denies any chest pain. Blood pressure is elevated 170/120. Patient takes Cardizem. She is also on Eliquis secondary to intermittent atrial fibrillation. Patient has a heart rate on EKG of 193 with what appears to be irregular tachycardic. Looks like it is supraventricular tachycardia. Patient denies any chest pain and blood pressure stable. Given the history of atrial fibrillation with RVR, not take medications today, I would initially try a 20 mg bolus of Cardizem. I believe this will be beneficial for the heart rate and the blood pressure. 01/19/20 14:17 Labs as recorded. I did convert the supraventricular tachycardia with the home medicine with a one-time dose of Cardizem. Patient's pain is improved. Blood pressure still 180/110. She denies any headache or chest pain. I did speak directly to Dr. Chamberlain the urologist. He does believe that the patient needs a repeat nephrostomy tube. He does believe that the patient can go emergency room to emergency room. I will call the transfer center. 01/19/20 14:23 Repeat EKG shows a heart rate of 97, normal sinus rhythm, normal axis, no obvious ST elevation or depression. 01/19/20 14:47 Patient has been accepted for an ER to ER transfer. Blood pressure is now slightly improved at 170/95. - Vital Signs Vital signs: Temp Pulse Resp BP Pulse Ox 97.5 F 64 23 H 183/114 H 99 01/19/20 12:29 01/19/20 12:29 01/19/20 14:01 01/19/20 14:00 01/19/20 14:01 - Laboratory Result Diagrams: 01/19/20 13:08 01/19/20 13:08 Laboratory results interpreted by me: 01/19/20 01/19/20 13:08 13:08 WBC 13.5 H MCHC 31.5 L RDW 22.3 H Lymph % (Auto) 6.7 L Absolute Neuts (auto) 11.7 H Seg Neutrophils % 86.6 H Glucose 215 H Calcium 10.5 H Total Protein 8.6 H Critical Care Note - Critical Care Note Total time excluding time spent on procedures (mins): 35 Discharge - Discharge Clinical Impression: Nephrostomy tube displaced, Supraventricular tachycardia Condition: Fair Disposition: [facility] Referrals: MATTHEW MARION MD [Primary Care Provider] - Follow up as needed
[2020-01-19] MEDS ORDERED: DILTIAZEM HCL INJ 25 MG/5 ML VIAL IV ONE ×2 (13:27→16:05)
[2020-01-19 13:35] LABS: ABSOLUTE LYMPHOCYTES (AUTO) 0.9 10^3/uL (0.5-4.7); ABSOLUTE MONOCYTES (AUTO) 0.9 10^3/uL (0.1-1.4); ABSOLUTE NEUT (AUTO) 11.7 10^3/uL (1.7-8.2); BASOPHILS % (AUTO) 0.2 % (0-2); HEMATOCRIT 39.9 % (36.0-47.0); HEMOGLOBIN 12.6 g/dL (12.0-15.5); LYMPHOCYTES % (AUTO) 6.7 % (13-45); MEAN CORPUSCULAR HEMOGLOBIN 28.9 pg (27.0-33.4); MEAN CORPUSCULAR HGB CONC 31.5 g/dL (32.0-36.0); MEAN CORPUSCULAR VOLUME 92 fl (80-97); MONOCYTES % (AUTO) 6.5 % (3-13); PLATELET COUNT 212 10^3/uL (150-450); RED BLOOD COUNT 4.35 10^6/uL (3.72-5.28); RED CELL DISTRIBUTION WIDTH 22.3 % (11.5-14.0); SEGMENTED NEUTROPHILS % (AUTO) 86.6 % (42-78); TOTAL CELLS COUNTED % (AUTO) 100 %; WHITE BLOOD COUNT 13.5 10^3/uL (4.0-10.5)
[2020-01-19 13:57] LABS: ALBUMIN 4.7 g/dL (3.5-5.0); ALKALINE PHOSPHATASE 66 U/L (38-126); ANION GAP 16 (5-19); ASPARTATE AMINO TRANSFERASE 31 U/L (14-36); BILIRUBIN,DIRECT 0.4 mg/dL (0.0-0.4); BILIRUBIN,TOTAL 0.8 mg/dL (0.2-1.3); BLOOD UREA NITROGEN 19 mg/dL (7-20); CALCIUM 10.5 mg/dL (8.4-10.2); CARBON DIOXIDE 22 mmol/L (22-30); CHLORIDE 104 mmol/L (98-107); GLUCOSE 215 mg/dL (75-110); POTASSIUM 4.4 mmol/L (3.6-5.0); TOTAL PROTEIN 8.6 g/dL (6.3-8.2)
[2020-01-19 14:23] VITALS: BP 183/114
[2020-01-19] MEDS ORDERED: ONDANSETRON HCL INJ/PF 4 MG/2 ML SDV IV ONE (15:53)
--- NOTE | 2020-01-19 18:56 | EKG REPORT ---
SEVERITY:- ABNORMAL ECG - SUPRAVENTRICULAR TACHYCARDIA REPOLARIZATION ABNORMALITY, PROB RATE RELATED : Confirmed by: Yovany De Jesus MD 19-Jan-2020 18:55:58
--- NOTE | 2020-01-21 08:17 | EKG REPORT ---
SEVERITY:- BORDERLINE ECG - SINUS RHYTHM PROBABLE LEFT ATRIAL ABNORMALITY : Confirmed by: Sincere Casas 21-Jan-2020 08:17:01
== END 2020-01-19 16:31 | disposition short-term general hospital (02) ==
LOC: ER 12:25
DX: N99.528 Other complication of incontinent external stoma of urinary tract (principal); I47.1 Supraventricular tachycardia; C56.9 Malignant neoplasm of unspecified ovary; R10.9 Unspecified abdominal pain; E78.00 Pure hypercholesterolemia, unspecified; I10 Essential (primary) hypertension; E11.9 Type 2 diabetes mellitus without complications; Z79.02 Long term (current) use of antithrombotics/antiplatelets
CPT/HCPCS: 93005; 96376; 99284; 96374; 96375; 36415; 83690; 85025; 80076; 80048; 84484; 93010; J3490; J2270; J2405